=== PATIENT | female | born 1945 | race African-American/Black ===

== ENCOUNTER 2016-09-02 11:00 | Emergency (ER) | payer BC, MEDICARE ==
--- NOTE | 2016-09-02 13:10 | Emergency Department Record ---
History of Present Illness - General Chief complaint: Pain Stated complaint: ACHES LEFT SIDE OF BODY Time Seen by Provider: 09/02/16 11:35 Source: Patient Mode of Arrival: Wheelchair - History of Present Illness Initial comments: neck and low back pain and which radiates into the left leg Onset/Timin -: Days(s) Location: Left, Arm, Elbow, Hand, Knee, Lower Leg, Shoulder, Thigh History of Same: No Radiation: Other Severity scale (1-10): 10 Quality: Burning, Sharp, Stabbing Consistency: Constant Improves with: Nothing Worsens with: Nothing Associated Symptoms: Denies other symptoms - Related Data Home Medications Medication Instructions Recorded Confirmed Last Taken Citalopram Hydrobromide 20 mg PO DAILY 01/02/14 09/02/16 09/02/16 [Citalopram HBr] Lisinopril [Lisinopril] 40 mg PO DAILY 01/02/14 09/02/16 09/02/16 Lorazepam [Lorazepam] 1 mg PO QHS 01/02/14 09/02/16 09/02/16 Metoprolol Tartrate [Metoprolol 50 mg PO DAILY 01/02/14 09/02/16 09/02/16 Tartrate] Polyethylene Glycol 3350 17 gm PO DAILY 01/02/14 09/02/16 09/02/16 [Polyethylene Glycol 3350] Esomeprazole Magnesium [Nexium] 20 mg PO DAILY 11/07/14 09/02/16 09/02/16 Hydrocodone/Acetaminophen 1 tab PO ASDIR 11/22/15 09/02/16 09/02/16 [Hydrocodon-Acetaminophen 5-325] Previous Rx's Medication Instructions Recorded Dicyclomine HCl [Bentyl] 10 mg PO Q8H #30 cap 04/29/15 Naproxen [Naprosyn] 500 mg PO Q12H #20 tab. 09/02/16 Allergies Allergy/AdvReac Type Severity Reaction Status Date / Time codeine [CODEINE] Allergy Unknown HEADACHE Verified 06/17/16 20:28 Penicillins [PENICILLINS] Allergy Unknown HIVES Verified 06/17/16 20:28 Travel Screening - Travel/Exposure Within Last 30 Days Have you traveled within the last 30 days?: No - Travel/Exposure Within Last Year Have you traveled outside the [place] in the last year?: No - Additonal Travel Details Have you been exposed to anyone with a communicable illness?: No - Travel Symptoms Symptom Screening: None Review of Systems Reviewed: No additional complaints except as noted below Constitutional: Reports: As per HPI. Denies: Chills, Fever, Malaise, Night sweats, Weakness, Weight change Eyes: Reports: As per HPI. Denies: Eye discharge, Eye pain, Photophobia, Vision change ENT: Reports: As per HPI. Denies: Congestion, Dental pain, Ear pain, Epistaxis , Hearing loss, Throat pain Respiratory: Reports: As per HPI. Denies: Cough, Dyspnea, Hemoptysis, Stridor, Wheezes Cardiovascular: Reports: As per HPI. Denies: Arrhythmia, Chest pain, Dyspnea on exertion, Edema, Murmurs, Orthopnea, Palpitations, Paroxysmal nocturnal dyspnea, Rheumatic Fever, Syncope Endocrine: Reports: As per HPI. Denies: Fatigue, Heat or cold intolerance, Polydipsia, Polyuria Gastrointestinal: Reports: As per HPI. Denies: Abdominal pain, Constipation, Diarrhea, Hematemesis, Hematochezia, Melena, Nausea, Vomiting Genitourinary: Reports: As per HPI. Denies: Abnormal menses, Discharge, Dyspareunia, Dysuria, Frequency, Hematuria, Incontinence, Retention, Urgency Musculoskeletal: Reports: As per HPI, Back pain. Denies: Arthralgia, Gout, Joint swelling, Myalgia, Neck pain Skin: Reports: As per HPI. Denies: Bruising, Change in color, Change in hair/ nails, Lesions, Pruritus, Rash Neurological: Reports: As per HPI. Denies: Abnormal gait, Confusion, Headache, Numbness, Paresthesias, Seizure, Tingling, Tremors, Vertigo, Weakness Psychiatric: Reports: As per HPI. Denies: Anxiety, Auditory hallucinations, Depression, Homicidal thoughts, Suicidal thoughts, Visual hallucinations Hematological/Lymphatic: Reports: As per HPI. Denies: Anemia, Blood Clots, Easy bleeding, Easy bruising, Swollen glands Past Medical History - SOCIAL HISTORY Smoking Status: Former smoker Alcohol Use: None Drug Use: None - RESPIRATORY Hx Respiratory Disorders: Yes Hx Pneumonia: Yes (2011 or 2012) - CARDIOVASCULAR Hx Cardio Disorders: Yes Hx CHF: Yes Hx Hypertension: Yes - NEURO Hx Neuro Disorders: No - GI Hx GI Disorders: Yes Hx Abdominal Pain: Yes (lower mid radiates RLQ) Hx Reflux: Yes Hx Irritable Bowel: Yes Hx Pancreatitis: Yes (multiple time 2015) - Hx Genitourinary Disorders: No Hx Kidney Stones: No - ENDOCRINE Hx Endocrine Disorders: No Hx Diabetes: No Hx Thyroid Disease: No - MUSCULOSKELETAL Hx Musculoskeletal Disorders: Yes Hx Arthritis: Yes Hx Osteoporosis: Yes - PSYCH Hx Psych Problems: Yes Hx Anxiety: Yes Hx Depression: Yes - HEMATOLOGY/ONCOLOGY Hx Hematology/Oncology Disorders: Yes Hx Anemia: Yes (currently) Hx Blood Transfusions: Yes (when in the hospital w/pancreatitis) Family Medical History Any Significant Family History?: Yes Hx Diabetes: Mother, Brother/Sister Physical Exam - General General Appearance: Alert, Oriented x3, Cooperative, No acute distress - Head Head exam: Normal inspection - Eye Eye exam: Normal appearance, PERRL Pupils: Normal accommodation - ENT ENT exam: Normal exam, Mucous membranes moist, Normal external ear exam, Normal orophraynx, TM's normal bilaterally Ear exam: Normal external inspection. negative: External canal tenderness Nasal Exam: Normal inspection. negative: Discharge, Sinus tenderness Mouth exam: Normal external inspection, Tongue normal Teeth exam: Normal inspection. negative: Dental caries Throat exam: Normal inspection. negative: Tonsillar erythema, Tonsillar exudate - Neck Neck exam: Normal inspection, Full ROM. negative: Tenderness - Respiratory Respiratory exam: Normal lung sounds bilaterally. negative: Respiratory distress - Cardiovascular Cardiovascular Exam: Regular rate, Normal rhythm, Normal heart sounds - GI/Abdominal GI/Abdominal exam: Soft, Normal bowel sounds. negative: Tenderness - Rectal Rectal exam: Deferred - exam: Deferred - Extremities Extremities exam: Normal inspection, Full ROM, Normal capillary refill, Tenderness (low back pain and left leg radiopathy) - Back Back exam: Reports: Normal inspection, Full ROM. Denies: Muscle spasm, Rash noted, Tenderness - Neurological Neurological exam: Alert, Normal gait, Oriented X3, Reflexes normal - Psychiatric Psychiatric exam: Normal affect, Normal mood - Skin Skin exam: Dry, Intact, Normal color, Warm Course Vital Signs 09/02/16 09/02/16 11:42 11:45 Temperature 99.2 F 99.2 F Pulse Rate 85 Pulse Rate [ 101 H Pulse Ox Probe] Respiratory 12 12 Rate Blood Pressure 122/79 Blood Pressure 122/79 [Left Arm] Pulse Ox 97 97 Disposition Clinical Impression: Acute Strain of Neck Muscle Qualifiers: Encounter type: initial encounter Qualified Code(s): S16.1XXA - Strain of muscle, fascia and tendon at neck level, initial encounter Lumbar spine strain Qualifiers: Encounter type: sequela Qualified Code(s): S39.012S - Strain of muscle, fascia and tendon of lower back, sequela Disposition: Home, Self-Care Instructions: Musculoskeletal Pain (ED) Additional Instructions: Follow up with family doctor in 3-5 days. Prescriptions: Naproxen [Naprosyn] 500 mg PO Q12H #20 tab.dr Forms: Patient Portal Access Time of Disposition: 13:52
== END 2016-09-02 14:05 | disposition home or self-care (01) ==
LOC: ER 11:00
DX: S16.1XXA Strain of muscle, fascia and tendon at neck level, initial encounter (principal); S39.012A Strain of muscle, fascia and tendon of lower back, initial encounter; X58.XXXA Exposure to other specified factors, initial encounter
CPT/HCPCS: 99282

== ENCOUNTER 2016-10-12 13:19 | Emergency (ER) | payer MEDICARE ==
[2016-10-12] MEDS ORDERED: ONDANSETRON 4 MG ODT TABLET SL ONE (13:35)
[2016-10-12] MEDS ORDERED: ACETAMINOPHEN 500 MG TABLET PO ONE (13:37)
--- NOTE | 2016-10-12 13:39 | Emergency Department Record ---
History of Present Illness - General Chief complaint: Vomiting Stated complaint: VOMITING/DIARRHEA Time Seen by Provider: 10/12/16 13:31 Source: Patient Mode of Arrival: Ambulatory Limitations: No limitations - History of Present Illness Initial comments: 71 yo female presents with congestion, cough, sore throat, nausea, vomiting and diarrhea. Her initial symptoms started on Saturday with the cough and congestion with sore throat. The vomiting and diarrhea started in the last 24 hours. No fevers. No blood in the stools. The cough is non productive. MD complaint: Diarrhea, Nausea, Vomiting, Other (cough, runny nose, sore throat, sinus pressure) Onset/Timin -: Days(s) Description of Vomiting: Food contents, Watery Radiation: None Severity: Mild Quality: Constant Consistency: Constant Improves with: None Worsens with: None Associated Symptoms: Denies other symptoms - Related Data Home Medications Medication Instructions Recorded Confirmed Last Taken Citalopram Hydrobromide 20 mg PO DAILY 01/02/14 10/12/16 10/12/16 [Citalopram HBr] Lisinopril [Lisinopril] 40 mg PO DAILY 01/02/14 10/12/16 10/12/16 Lorazepam [Lorazepam] 1 mg PO QHS 01/02/14 10/12/16 10/12/16 Metoprolol Tartrate [Metoprolol 50 mg PO DAILY 01/02/14 10/12/16 10/12/16 Tartrate] Polyethylene Glycol 3350 17 gm PO DAILY 01/02/14 10/12/16 10/12/16 [Polyethylene Glycol 3350] Esomeprazole Magnesium [Nexium] 20 mg PO DAILY 11/07/14 10/12/16 10/12/16 Hydrocodone/Acetaminophen 1 tab PO ASDIR 11/22/15 10/12/16 10/12/16 [Hydrocodon-Acetaminophen 5-325] Previous Rx's Medication Instructions Recorded Dicyclomine HCl [Bentyl] 10 mg PO Q8H #30 cap 04/29/15 Ondansetron [Zofran Odt] 4 mg PO Q8H #15 tab.rapdis 10/12/16 Allergies Allergy/AdvReac Type Severity Reaction Status Date / Time codeine [CODEINE] Allergy Unknown HEADACHE Verified 10/12/16 13:26 Penicillins [PENICILLINS] Allergy Unknown HIVES Verified 10/12/16 13:26 Travel Screening - Travel/Exposure Within Last 30 Days Have you traveled within the last 30 days?: No - Travel/Exposure Within Last Year Have you traveled outside the [place] in the last year?: No - Additonal Travel Details Have you been exposed to anyone with a communicable illness?: No - Travel Symptoms Symptom Screening: None Review of Systems Constitutional: Reports: Malaise, Weakness. Denies: Chills, Fever Eyes: Denies: Eye discharge ENT: Reports: Congestion, Throat pain. Denies: Ear pain Respiratory: Reports: Cough. Denies: Dyspnea, Hemoptysis, Stridor, Wheezes Cardiovascular: Denies: Chest pain, Palpitations, Syncope Endocrine: Reports: Fatigue Gastrointestinal: Reports: Diarrhea, Nausea, Vomiting. Denies: Abdominal pain, Hematochezia, Melena Genitourinary: Denies: Dysuria, Urgency Musculoskeletal: Denies: Arthralgia, Back pain, Myalgia Skin: Denies: Bruising, Change in color, Rash Neurological: Denies: Confusion, Headache Psychiatric: Denies: Anxiety Hematological/Lymphatic: Denies: Blood Clots, Easy bleeding, Easy bruising, Swollen glands Past Medical History - SOCIAL HISTORY Smoking Status: Former smoker Alcohol Use: None Drug Use: None - RESPIRATORY Hx Respiratory Disorders: Yes Hx Pneumonia: Yes (2011 or 2012) - CARDIOVASCULAR Hx Cardio Disorders: Yes Hx CHF: Yes Hx Hypertension: Yes - NEURO Hx Neuro Disorders: No - GI Hx GI Disorders: Yes Hx Abdominal Pain: Yes (lower mid radiates RLQ) Hx Reflux: Yes Hx Irritable Bowel: Yes Hx Pancreatitis: Yes (multiple time 2014) - Hx Genitourinary Disorders: No Hx Kidney Stones: No - ENDOCRINE Hx Endocrine Disorders: No Hx Diabetes: No Hx Thyroid Disease: No - MUSCULOSKELETAL Hx Musculoskeletal Disorders: Yes Hx Arthritis: Yes Hx Osteoporosis: Yes - PSYCH Hx Psych Problems: Yes Hx Anxiety: Yes Hx Depression: Yes - HEMATOLOGY/ONCOLOGY Hx Hematology/Oncology Disorders: Yes Hx Anemia: Yes (currently) Hx Blood Transfusions: Yes (when in the hospital w/pancreatitis) Family Medical History Any Significant Family History?: Yes Hx Diabetes: Mother, Brother/Sister Physical Exam - General General Appearance: Alert, Oriented x3, Cooperative, No acute distress Limitations: No limitations - Head Head exam: Normal inspection - Eye Eye exam: Normal appearance, PERRL. negative: Conjunctival injection, Periorbital swelling - ENT ENT exam: Mucous membranes moist. negative: Normal exam, Normal orophraynx Ear exam: Normal external inspection. negative: External canal tenderness Nasal Exam: Discharge (clear), Sinus tenderness. negative: Normal inspection, Dried blood Mouth exam: Normal external inspection, Tongue normal Teeth exam: Normal inspection. negative: Dental caries Throat exam: Tonsillar erythema. negative: Tonsillomegaly, Tonsillar exudate, R peritonsillar mass, L peritonsillar mass - Neck Neck exam: Normal inspection, Full ROM. negative: Lymphadenopathy, Tenderness - Respiratory Respiratory exam: Normal lung sounds bilaterally. negative: Respiratory distress, Rhonchi, Stridor, Wheezes - Cardiovascular Cardiovascular Exam: Regular rate, Normal rhythm, Normal heart sounds Peripheral Pulses: 2+: Radial (R), Radial (L) - GI/Abdominal GI/Abdominal exam: Soft. negative: Diminished bowel sounds, Distended, Guarding , Rebound, Rigid, Tenderness - exam: Deferred - Extremities Extremities exam: Normal inspection - Back Back exam: Reports: Normal inspection, Full ROM. Denies: CVA tenderness (R), CVA tenderness (L), Muscle spasm, Rash noted, Tenderness - Neurological Neurological exam: Alert, Normal gait, Oriented X3 - Psychiatric Psychiatric exam: Normal affect, Normal mood. negative: Agitated, Anxious - Skin Skin exam: Dry, Intact, Normal color, Warm. negative: Cyanosis, Diaphoretic, Erythema Course Vital Signs 10/12/16 13:27 Temperature 99.3 F Pulse Rate 90 Respiratory 18 Rate Blood Pressure 137/89 Pulse Ox 99 - Reevaluation(s) Reevaluation #1: The patient was seen and examined She is well appearing, no acute distress. Her vitals are in the normal range Her examination is reassuring with a very soft abdomen that is non tender to palpation She will be provided Zofran and a PO challenge FLU swab sent 10/12/16 13:38 10/12/16 14:02 Reevaluation #2: The INFLUENZA A and B were negative 10/12/16 14:22 The patient was informed of the flu swabs No nausea or vomiting after the Zofran Waiting for a UA 10/12/16 14:24 Reevaluation #3: There are no acute changes on the UA for infection Spec [place] is 1.025 No vomiting or diarrhea in the ED Will DC with Zofran She has tolerated PO well. 10/12/16 15:37 Disposition Disposition: Discharge Clinical Impression: Nausea vomiting and diarrhea URI (upper respiratory infection) Qualifiers: URI type: unspecified URI Qualified Code(s): J06.9 - Acute upper respiratory infection, unspecified Disposition: Home, Self-Care Condition: (1) Good Instructions: Acute Nausea and Vomiting (ED), Viral Syndrome (ED) Additional Instructions: Rest and stay well hydrated Return if worse or if you have any uncontrolled nausea, vomiting or diarrhea. Call your doctor first of the week for a recheck You may take Zofran as directed for nausea. Prescriptions: Ondansetron [Zofran Odt] 4 mg PO Q8H #15 tab.rapdis Forms: Patient Portal Access Time of Disposition: 15:38
[2016-10-12 14:03] LABS: INFLUENZA A NEGATIVE (NEGATIVE); INFLUENZA B NEGATIVE (NEGATIVE)
[2016-10-12 15:14] LABS: URINE APPEARANCE CLEAR; URINE BILIRUBIN NEGATIVE (NEGATIVE); URINE BLOOD NEGATIVE (NEGATIVE); URINE COLOR YELLOW; URINE GLUCOSE (UA) NEGATIVE (NEGATIVE); URINE KETONE NEGATIVE (NEGATIVE); URINE LEUKOCYTE ESTERASE NEGATIVE (NEGATIVE); URINE NITRITE NEGATIVE (NEGATIVE); URINE PROTEIN TRACE (NEGATIVE); URINE UROBILINOGEN 0.2 E.U./dL (0.20 - 1.00)
[2016-10-12 15:24] LABS: URINE RBC 0 - 2 (NONE SEEN); URINE WBC 0 - 2 (0-2/hpf)
[2016-10-12 15:25] LABS: URINE BACTERIA FEW
== END 2016-10-12 16:16 | disposition home or self-care (01) ==
LOC: ER 13:19
DX: R11.2 Nausea with vomiting, unspecified (principal); R19.7 Diarrhea, unspecified; J06.9 Acute upper respiratory infection, unspecified; R10.31 Right lower quadrant pain; I10 Essential (primary) hypertension; I50.9 Heart failure, unspecified; Z87.891 Personal history of nicotine dependence
CPT/HCPCS: 81001; 87400; 99283

== ENCOUNTER 2016-10-24 14:47 | Emergency (ER) | payer MEDICARE ==
--- NOTE | 2016-10-24 16:31 | Emergency Department Record ---
History of Present Illness - General Chief Complaint: Neck Injury/Pain Stated Complaint: NECK,SHOULDER PAIN / BUNCH Time Seen by Provider: 10/24/16 16:23 Source: Patient, RN notes reviewed Mode of Arrival: Wheelchair - History of Present Illness Initial Comments: chronic neck pain and she is out of her pain medications and she was seen her [address] Pickett and she had a cardiac workup. No dyspnea . 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 MD Complaint: Neck pain Onset/Timin -: Days(s) Place: Home Radiation: Upper back, Other Severity: Similar to prior neck pain Severity scale (1-10): 10 Quality: Aching Consistency: Constant Improves With: None Worsens With: None Context: Other Associated Symptoms: None Treatments Prior to Arrival: None - Related Data Home Medications Medication Instructions Recorded Confirmed Last Taken Citalopram Hydrobromide 20 mg PO DAILY 01/02/14 10/24/16 10/19/16 [Citalopram HBr] Lisinopril [Lisinopril] 40 mg PO DAILY 01/02/14 10/24/16 10/19/16 Lorazepam [Lorazepam] 1 mg PO QHS 01/02/14 10/24/16 10/19/16 Metoprolol Tartrate [Metoprolol 50 mg PO DAILY 01/02/14 10/24/16 10/19/16 Tartrate] Polyethylene Glycol 3350 17 gm PO DAILY 01/02/14 10/24/16 10/19/16 [Polyethylene Glycol 3350] Esomeprazole Magnesium [Nexium] 20 mg PO DAILY 11/07/14 10/24/16 10/19/16 Hydrocodone/Acetaminophen 1 tab PO ASDIR 11/22/15 10/24/16 10/19/16 [Hydrocodon-Acetaminophen 5-325] Previous Rx's Medication Instructions Recorded Dicyclomine HCl [Bentyl] 10 mg PO Q8H #30 cap 04/29/15 Ondansetron [Zofran Odt] 4 mg PO Q8H #15 tab.rapdis 10/12/16 Cyclobenzaprine HCl [Flexeril] 10 mg PO TID #30 tablet 10/24/16 Hydrocodone/Acetaminophen [[place] 1 tab PO Q6H PRN #14 tab 10/24/16 5mg/325mg] Allergies Allergy/AdvReac Type Severity Reaction Status Date / Time codeine [CODEINE] Allergy Unknown HEADACHE Verified 10/24/16 15:43 Penicillins [PENICILLINS] Allergy Unknown HIVES Verified 10/24/16 15:43 Travel Screening - Travel/Exposure Within Last 30 Days Have you traveled within the last 30 days?: No Review of Systems Reviewed: No additional complaints except as noted below Constitutional: Reports: As per HPI. Denies: Chills, Fever, Malaise, Night sweats, Weakness, Weight change Eyes: Reports: As per HPI. Denies: Eye discharge, Eye pain, Photophobia, Vision change ENT: Reports: As per HPI. Denies: Congestion, Dental pain, Ear pain, Epistaxis , Hearing loss, Throat pain Respiratory: Reports: As per HPI. Denies: Cough, Dyspnea, Hemoptysis, Stridor, Wheezes Cardiovascular: Reports: As per HPI. Denies: Arrhythmia, Chest pain, Dyspnea on exertion, Edema, Murmurs, Orthopnea, Palpitations, Paroxysmal nocturnal dyspnea, Rheumatic Fever, Syncope Endocrine: Reports: As per HPI. Denies: Fatigue, Heat or cold intolerance, Polydipsia, Polyuria Gastrointestinal: Reports: As per HPI. Denies: Abdominal pain, Constipation, Diarrhea, Hematemesis, Hematochezia, Melena, Nausea, Vomiting Genitourinary: Reports: As per HPI. Denies: Abnormal menses, Discharge, Dyspareunia, Dysuria, Frequency, Hematuria, Incontinence, Retention, Urgency Musculoskeletal: Reports: As per HPI, Back pain, Neck pain, Other. Denies: Arthralgia, Gout, Joint swelling, Myalgia Skin: Reports: As per HPI. Denies: Bruising, Change in color, Change in hair/ nails, Lesions, Pruritus, Rash Neurological: Reports: As per HPI. Denies: Abnormal gait, Confusion, Headache, Numbness, Paresthesias, Seizure, Tingling, Tremors, Vertigo, Weakness Psychiatric: Reports: As per HPI. Denies: Anxiety, Auditory hallucinations, Depression, Homicidal thoughts, Suicidal thoughts, Visual hallucinations Hematological/Lymphatic: Reports: As per HPI. Denies: Anemia, Blood Clots, Easy bleeding, Easy bruising, Swollen glands Past Medical History - SOCIAL HISTORY Smoking Status: Former smoker Alcohol Use: None Drug Use: None - RESPIRATORY Hx Respiratory Disorders: Yes Hx Pneumonia: Yes (2011 or 2012) - CARDIOVASCULAR Hx Cardio Disorders: Yes Hx CHF: Yes Hx Hypertension: Yes - NEURO Hx Neuro Disorders: No - GI Hx GI Disorders: Yes Hx Abdominal Pain: Yes (lower mid radiates RLQ) Hx Reflux: Yes Hx Irritable Bowel: Yes Hx Pancreatitis: Yes (multiple time 2014) - Hx Genitourinary Disorders: No Hx Kidney Stones: No - ENDOCRINE Hx Endocrine Disorders: No Hx Diabetes: No Hx Thyroid Disease: No - MUSCULOSKELETAL Hx Musculoskeletal Disorders: Yes Hx Arthritis: Yes Hx Osteoporosis: Yes - PSYCH Hx Psych Problems: Yes Hx Anxiety: Yes Hx Depression: Yes - HEMATOLOGY/ONCOLOGY Hx Hematology/Oncology Disorders: Yes Hx Anemia: Yes (currently) Hx Blood Transfusions: Yes (when in the hospital w/pancreatitis) Family Medical History Any Significant Family History?: Yes Hx Diabetes: Mother, Brother/Sister Physical Exam - General General Appearance: Alert, Oriented x3, Cooperative, No acute distress - Head Head exam: Normal inspection - Eye Eye exam: Normal appearance, PERRL Pupils: Normal accommodation - ENT ENT exam: Normal exam, Mucous membranes moist, Normal external ear exam, Normal orophraynx, TM's normal bilaterally Ear exam: Normal external inspection. negative: External canal tenderness Nasal Exam: Normal inspection. negative: Discharge, Sinus tenderness Mouth exam: Normal external inspection, Tongue normal Teeth exam: Normal inspection. negative: Dental caries Throat exam: Normal inspection. negative: Tonsillar erythema, Tonsillar exudate - Neck Neck exam: Normal inspection, Full ROM. negative: Tenderness - Respiratory Respiratory exam: Normal lung sounds bilaterally. negative: Respiratory distress - Cardiovascular Cardiovascular Exam: Regular rate, Normal rhythm, Normal heart sounds - GI/Abdominal GI/Abdominal exam: Soft, Normal bowel sounds. negative: Tenderness - Rectal Rectal exam: Deferred - exam: Deferred - Extremities Extremities exam: Normal inspection, Full ROM, Normal capillary refill. negative: Tenderness - Back Back exam: Reports: Normal inspection, Full ROM. Denies: Muscle spasm, Rash noted, Tenderness - Neurological Neurological exam: Alert, Normal gait, Oriented X3, Reflexes normal - Psychiatric Psychiatric exam: Normal affect, Normal mood - Skin Skin exam: Dry, Intact, Normal color, Warm Course Vital Signs 10/24/16 15:38 Temperature 98.2 F Pulse Rate 116 H Respiratory 18 Rate Blood Pressure 109/76 Pulse Ox 98 Disposition Clinical Impression: Tension headache Strain of Neck Muscle Qualifiers: Encounter type: initial encounter Qualified Code(s): S16.1XXA - Strain of muscle, fascia and tendon at neck level, initial encounter Thoracic myofascial strain Qualifiers: Encounter type: initial encounter Qualified Code(s): S29.019A - Strain of muscle and tendon of unspecified wall of thorax, initial encounter Disposition: Home, Self-Care Condition: (1) Good Instructions: Cervical Sprain (ED) Additional Instructions: heat to back and neck follow up with primary DrCarrie in 2 days Prescriptions: Cyclobenzaprine HCl [Flexeril] 10 mg PO TID #30 tablet Hydrocodone/Acetaminophen [[place] 5mg/325mg] 1 tab PO Q6H PRN #14 tab PRN Reason: Pain - General Forms: Patient Portal Access Time of Disposition: 16:35
== END 2016-10-24 16:50 | disposition home or self-care (01) ==
LOC: ER 14:47
DX: S16.1XXA Strain of muscle, fascia and tendon at neck level, initial encounter (principal); S29.019A Strain of muscle and tendon of unspecified wall of thorax, initial encounter; G44.209 Tension-type headache, unspecified, not intractable; X58.XXXA Exposure to other specified factors, initial encounter
CPT/HCPCS: 99282

== ENCOUNTER 2016-10-26 13:25 | Emergency (ER) | payer MEDICARE ==
--- NOTE | 2016-10-26 14:18 | Emergency Department Record ---
History of Present Illness - General Stated Complaint: HEAD PAIN,LIGHTHEADED Time Seen by Provider: 10/26/16 14:12 Source: Patient, Family Mode of Arrival: Wheelchair Limitations: No limitations - History of Present Illness Initial comments: 71 yo female presents with nausea, vomiting, some diarrhea, headaches, neck pain , chest pain, abdominal pain. She has not felt well for two days since being seen in the ER for neck and back pain. She feels weak, nauseated, no appetite, and states she has not had anything to eat for 2 days. She was seen on 10/20 and 10/24 in the ED. She does suffer from chronic neck and back pain. The chest pain is mid chest and comes and goes. No history of CAD. She states her last normal meal was on Saturday. She has not seen her PCP since August. -: Days(s) Location: Other Radiation: Other Quality: Aching Consistency: Constant Improves with: None Worsens with: Eating, Movement Associated Symptoms: Chest pain, Cough, Headaches, Loss of appetite, Malaise, Nausea/vomiting, Shortness of breath, Weakness - [place] Coma Scale Eye Response: (4) Open spontaneously Motor Response: (6) Obeys commands Verbal Response: (5) Oriented [place] Total: 15 - Related Data Home Medications Medication Instructions Recorded Confirmed Last Taken Citalopram Hydrobromide 20 mg PO DAILY 01/02/14 10/24/16 10/19/16 [Citalopram HBr] Lisinopril [Lisinopril] 40 mg PO DAILY 01/02/14 10/24/16 10/19/16 Lorazepam [Lorazepam] 1 mg PO QHS 01/02/14 10/24/16 10/19/16 Metoprolol Tartrate [Metoprolol 50 mg PO DAILY 01/02/14 10/24/16 10/19/16 Tartrate] Polyethylene Glycol 3350 17 gm PO DAILY 01/02/14 10/24/16 10/19/16 [Polyethylene Glycol 3350] Esomeprazole Magnesium [Nexium] 20 mg PO DAILY 11/07/14 10/24/16 10/19/16 Hydrocodone/Acetaminophen 1 tab PO ASDIR 11/22/15 10/24/16 10/19/16 [Hydrocodon-Acetaminophen 5-325] Previous Rx's Medication Instructions Recorded Dicyclomine HCl [Bentyl] 10 mg PO Q8H #30 cap 04/29/15 Ondansetron [Zofran Odt] 4 mg PO Q8H #15 tab.rapdis 10/12/16 Cyclobenzaprine HCl [Flexeril] 10 mg PO TID #30 tablet 10/24/16 Hydrocodone/Acetaminophen [[place] 1 tab PO Q6H PRN #14 tab 10/24/16 5mg/325mg] Allergies Allergy/AdvReac Type Severity Reaction Status Date / Time codeine [CODEINE] Allergy Unknown HEADACHE Verified 10/24/16 15:43 Penicillins [PENICILLINS] Allergy Unknown HIVES Verified 10/24/16 15:43 Review of Systems Constitutional: Reports: Malaise, Weakness. Denies: Chills, Fever Eyes: Denies: Eye discharge, Eye pain, Photophobia, Vision change ENT: Denies: Congestion, Epistaxis, Throat pain Respiratory: Reports: Dyspnea. Denies: Cough, Hemoptysis, Stridor, Wheezes Cardiovascular: Reports: Chest pain. Denies: Palpitations, Syncope Endocrine: Denies: Fatigue, Polydipsia, Polyuria Gastrointestinal: Reports: Diarrhea (few loose stools), Nausea, Vomiting. Denies: Abdominal pain, Hematemesis, Hematochezia, Melena Genitourinary: Denies: Dysuria, Urgency Musculoskeletal: Reports: Back pain, Myalgia, Neck pain. Denies: Arthralgia, Joint swelling Skin: Denies: Bruising, Change in color Neurological: Reports: Headache. Denies: Numbness, Tingling, Tremors, Vertigo, Weakness Psychiatric: Denies: Anxiety Hematological/Lymphatic: Denies: Blood Clots, Easy bleeding, Easy bruising, Swollen glands Past Medical History - SOCIAL HISTORY Smoking Status: Former smoker Drug Use: None - RESPIRATORY Hx Respiratory Disorders: Yes Hx Pneumonia: Yes (2011 or 2012) - CARDIOVASCULAR Hx Cardio Disorders: Yes Hx CHF: Yes Hx Hypertension: Yes - NEURO Hx Neuro Disorders: No - GI Hx GI Disorders: Yes Hx Abdominal Pain: Yes (lower mid radiates RLQ) Hx Reflux: Yes Hx Irritable Bowel: Yes Hx Pancreatitis: Yes (multiple time 2014) - Hx Genitourinary Disorders: No Hx Kidney Stones: No - ENDOCRINE Hx Endocrine Disorders: No Hx Diabetes: No Hx Thyroid Disease: No - MUSCULOSKELETAL Hx Musculoskeletal Disorders: Yes Hx Arthritis: Yes Hx Osteoporosis: Yes - PSYCH Hx Psych Problems: Yes Hx Anxiety: Yes Hx Depression: Yes - HEMATOLOGY/ONCOLOGY Hx Hematology/Oncology Disorders: Yes Hx Anemia: Yes (currently) Hx Blood Transfusions: Yes (when in the hospital w/pancreatitis) Family Medical History Hx Diabetes: Mother, Brother/Sister Physical Exam - General General Appearance: Alert, Oriented x3, Cooperative, No acute distress Limitations: No limitations - Head Head exam: Atraumatic, Normal inspection - Eye Eye exam: Normal appearance, PERRL. negative: Conjunctival injection, Periorbital swelling - ENT ENT exam: Normal exam, Mucous membranes moist Ear exam: Normal external inspection Nasal Exam: Normal inspection Mouth exam: Normal external inspection Teeth exam: Normal inspection Throat exam: Normal inspection - Neck Neck exam: Normal inspection, Full ROM, Tenderness. negative: Lymphadenopathy, Meningismus - Respiratory Respiratory exam: Normal lung sounds bilaterally. negative: Accessory muscle use, Decreased breath sounds, Respiratory distress, Rhonchi, Stridor, Wheezes - Cardiovascular Cardiovascular Exam: Regular rate, Normal rhythm, Normal heart sounds Peripheral Pulses: 2+: Radial (R), Radial (L) - GI/Abdominal GI/Abdominal exam: Soft. negative: Distended, Tenderness - Rectal Rectal exam: Deferred - exam: Deferred - Extremities Extremities exam: Normal inspection, Full ROM, Normal capillary refill. negative: Pedal edema, Tenderness - Back Back exam: Reports: Normal inspection, CVA tenderness (R), CVA tenderness (L), Muscle spasm, Paraspinal tenderness, Tenderness, Vertebral tenderness. Denies: Full ROM, Rash noted - Neurological Neurological exam: Alert, Normal gait, Oriented X3, Reflexes normal - Psychiatric Psychiatric exam: Normal affect, Normal mood - Skin Skin exam: Dry, Intact, Normal color, Warm Course - Reevaluation(s) Reevaluation #1: EKG 14:26 NSR, rate 92, intervals normal, axis normal, ST NS anterior T wave changes in V@ and V3 new from prior. 10/26/16 15:05 10/26/16 16:35 Reevaluation #2: The labs were reviewed The patient has acute renal failure with CR of 2.3 and BUN of 31 With a GFR of 22 Prior CR 6 days ago was 0.8 with a GFR of >60 The CKG is 234 Troponin is negative 10/26/16 16:35 10/26/16 17:22 Reevaluation #3: HCT and Cervical spine CT scan are negative for acute processes Awaiting a UA 10/26/16 16:56 Reevaluation #4: UA 1.030 trace protein, no infection The patient preference is for [facility] was contacted for transfer Given her acute renal failure, chest pain and non specific changes she may need consultations not available at [facility] such as cardiology and nephrology 10/26/16 17:34 10/26/16 17:35 - Consultations Consultation #1: MAPS Reviewed. No pattern of abuse. Consultation #2: I GABE Savage She will admit for KATLIN, atypical CP Medical Decision Making - Lab Data Result diagrams: 10/26/16 15:55 10/26/16 15:55 Disposition Disposition: Transfer Clinical Impression: Nausea & vomiting, Chest pain, Headache, Dehydration, Acute kidney injury Cervical strain, acute Qualifiers: Encounter type: initial encounter Qualified Code(s): S16.1XXA - Strain of muscle, fascia and tendon at neck level, initial encounter Transfer To: [facility] Reason For Transfer: KATLIN, Atypical CP Accepting Physician: Hussein Time Discussed w/Accepting Physician: 17:49 Condition: (2) Stable Time of Disposition: 17:49
[2016-10-26] MEDS ORDERED: ONDANSETRON HCL IV 4 MG/2 ML VIAL IVP ONE (14:19)
[2016-10-26 16:01] LABS: BASO % 0.4 % (0-6); EOS % 1.5 % (0-6); GRAN % 73.7 % (47-80); HEMATOCRIT 31.9 % (35.0-47.0); HEMOGLOBIN 10.1 gm/dl (11.6-16.0); LYMPH % 17.7 % (16-45); MEAN CELL VOLUME 79.6 fl (81-97); MEAN CORPUSCULAR HEMOGLOBIN 25.1 pg (27-33); MEAN CORPUSCULAR HGB CONC 31.7 g/dl (32-36); MEAN PLATELET VOLUME 10.5 fl (7.4-10.4); MONO % 6.7 % (0-9); PLATELET COUNT 357 K/uL (130-400); RED BLOOD COUNT 4.01 M/uL (3.80-5.40); RED CELL DISTRIBUTION WIDTH 15.3 % (11.5-14.5); WHITE BLOOD COUNT W/O DIFF 7.4 K/uL (4.2-12.2)
[2016-10-26 16:10] LABS: INR 1.01; PARTIAL THROMBOPLASTIN TIME 24.6 SECONDS (24.5-39.1); PROTHROMBIN TIME (PATIENT) 11.4 SECONDS (9.5-12.1)
[2016-10-26 16:11] LABS: ALB/GLOB RATIO 1.2 (1.1-1.8); ALBUMIN 4.3 gm/dL (3.5-5.0); ALKALINE PHOSPHATASE 129 U/L (38-126); ALT/SGPT 24 U/L (9-52); ANION GAP 14.4 (7-16); AST/SGOT 25 U/L (14-36); BILIRUBIN,TOTAL 0.57 mg/dL (0.2-1.3); BLOOD UREA NITROGEN 31 mg/dL (7-17); CARBON DIOXIDE 25.6 mmol/L (22-30); CREATINE PHOSPHOKINASE 234 U/L (30-135); CREATININE 2.3 mg/dL (0.52-1.04); EST GLOMERULAR FILTRATION RATE 22 ml/min; GLUCOSE,RANDOM 94 mg/dL (70-110); TOTAL PROTEIN 7.8 gm/dL (6.3-8.2)
[2016-10-26 16:23] LABS: CKMB 2.3 ug/L (0-6); TROPONIN I < 0.012 ng/mL (0.00-0.034)
[2016-10-26] MEDS ORDERED: LORAZEPAM 2 MG/ML VIAL IV ONE (16:36)
[2016-10-26 17:26] LABS: URINE APPEARANCE SL CLOUDY; URINE BILIRUBIN NEGATIVE (NEGATIVE); URINE BLOOD NEGATIVE (NEGATIVE); URINE COLOR YELLOW; URINE GLUCOSE (UA) NEGATIVE (NEGATIVE); URINE KETONE NEGATIVE (NEGATIVE); URINE LEUKOCYTE ESTERASE NEGATIVE (NEGATIVE); URINE NITRITE NEGATIVE (NEGATIVE); URINE PROTEIN TRACE (NEGATIVE); URINE UROBILINOGEN 0.2 E.U./dL (0.20 - 1.00)
[2016-10-26] MEDS ORDERED: 0.9 % SODIUM CHLORIDE 1,000 ML BAG IV ONE (17:36)
[2016-10-26 19:06] LABS: ANION GAP 12.6 (7-16); CARBON DIOXIDE 24.4 mmol/L (22-30); CREATININE 1.9 mg/dL (0.52-1.04)
[2016-10-26] MEDS ORDERED: HYDROCODONE/APAP 5/325MG TABLET PO ONE (20:02)
--- NOTE | 2016-10-31 10:51 | CT SCAN REPORT ---
EXAM: HEAD CT HISTORY: HEADACHE, DIZZY. TECHNIQUE: Axial CT scan of the head was performed without IV contrast. Comparison: None. Hand dominance: Right. FINDINGS: No definite acute intracranial hemorrhage identified. No focal mass effect or midline shift apparent. Mild generalized atrophy is present. Some mild chronic appearing deep white matter changes seen, nonspecific, but likely representing some chronic small vessel deep white matter ischemic disease. No depressed calvarial fracture evident. The visualized mastoids and paranasal sinuses all appear essentially clear. IMPRESSION: 1. GENERALIZED ATROPHY WITH CHRONIC APPEARING DEEP WHITE MATTER CHANGES. 2. NO DEFINITE ACUTE INTRACRANIAL HEMORRHAGE OR FOCAL MASS EFFECT IDENTIFIED. JOB [facility]BER: [id number] [facility]
--- NOTE | 2016-10-31 12:12 | CT SCAN REPORT ---
DATE: 10/26/2016. EXAM: CT OF THE CERVICAL SPINE. HISTORY: Worsening neck pain. TECHNIQUE: Axial CT scan of the entire cervical spine was performed without intravenous contrast. COMPARISON: No prior cervical study with which to compare. ENCOUNTER: Not applicable. FINDINGS: No apical pneumothorax is evident. 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 No definite fracture of the cervical spine identified. No prevertebral soft tissue swelling is evident. Some loss of the normal cervical lordosis likely due to positioning or spasm. Prominent degenerative change at the odontoid-anterior arch of C1 articulation. Narrowing of the fifth and sixth cervical interspaces with hypertrophic spurring as well. Facet joint arthropathy at multiple levels as well. Generous -sized thyroid gland with the left lobe larger than the right. No obvious focal thyroid nodule/mass seen, but correlation with physical examination suggested. If clinically warranted follow up with non-emergent thyroid ultrasound may be useful to more fully evaluate the relatively large-appearing thyroid gland. Multilevel foraminal stenosis related to the degenerative change in the cervical spine. IMPRESSION: 1. NO DEFINITE FRACTURE OR PREVERTEBRAL SOFT TISSUE SWELLING SEEN IN THE CERVICAL SPINE. 2. MULTILEVEL DEGENERATIVE CHANGE IN THE CERVICAL SPINE WITH LOSS OF LORDOSIS LIKELY DUE TO POSITIONING OR SPASM. 3. PROMINENT-SIZED THYROID GLAND, PARTICULARLY LEFT LOBE DESCRIBED ABOVE. JOB NUMBER: [id number] [facility]
== END 2016-10-26 20:28 | disposition short-term general hospital (02) ==
LOC: ER 13:25
DX: N17.9 Acute kidney failure, unspecified (principal); S37.009A Unspecified injury of unspecified kidney, initial encounter; S16.1XXA Strain of muscle, fascia and tendon at neck level, initial encounter; R07.89 Other chest pain; R11.2 Nausea with vomiting, unspecified; R19.7 Diarrhea, unspecified; R51 Headache; E86.0 Dehydration; I10 Essential (primary) hypertension; I50.9 Heart failure, unspecified; Z87.891 Personal history of nicotine dependence; X58.XXXA Exposure to other specified factors, initial encounter
CPT/HCPCS: 99285 ×2; 96374; 96375; 96361; 82550; 83690; 85025; 85730; 85610; 82553; 84484; 80048; 80053; 81003; 72125; 70450; 93005; 93010; J2405; J2060; J7030

== ENCOUNTER 2017-02-16 09:32 | Emergency (ER) | payer MEDICARE ==
[2017-02-16] MEDS ORDERED: ACETAMINOPHEN 1,000 MG/100 ML BTL IVPB ONE (09:42)
[2017-02-16] MEDS ORDERED: DIAZEPAM 5 MG/1 ML TUBX IVP ONE (09:42)
--- NOTE | 2017-02-16 09:48 | Emergency Department Record ---
History of Present Illness - General Chief complaint: Pain Stated complaint: HEAD PAIN Source: Patient, Family Mode of Arrival: Ambulatory Limitations: No limitations - History of Present Illness Initial comments: 71yo female presents with neck pain. The pain has increased the last 2 days. The pain worsens with turning the head side to side. No weakness, numbness or tingling. No trauma. The patient has a long history of pain in the back and neck. No fevers or chills. No nausea, vomiting, or diarrhea. No lower extremity weakness. No upper extremity weakness. The neck pain causes a headache in the occipital area. No rash. PCP [facility]. No spine surgery. The neck pain causes the low back to spasm as well. No changes in bowel or bladder function. She has Redmon and Valium from her PCP. She did not take them today. She stated she wanted to be able to monitor the severity of todays pain. MD Complaint: Neck Pain -: Days(s) (2) Location: Other (neck) -: Yes Arthralgia Radiation: Proximal, Distal Quality: Aching Consistency: Constant Improves with: Immobilization, Rest Worsens with: Other (turning head) - Related Data Home Medications Medication Instructions Recorded Confirmed Last Taken Citalopram Hydrobromide 20 mg PO DAILY 01/02/14 02/16/17 02/15/17 [Citalopram HBr] Lisinopril [Lisinopril] 40 mg PO DAILY 01/02/14 02/16/17 02/15/17 Lorazepam [Lorazepam] 1 mg PO QHS 01/02/14 02/16/17 02/15/17 Metoprolol Tartrate [Metoprolol 50 mg PO DAILY 01/02/14 02/16/17 02/15/17 Tartrate] Polyethylene Glycol 3350 17 gm PO DAILY 01/02/14 02/16/17 02/15/17 [Polyethylene Glycol 3350] Esomeprazole Magnesium [Nexium] 20 mg PO DAILY 11/07/14 02/16/17 02/15/17 Hydrocodone/Acetaminophen 1 tab PO ASDIR 11/22/15 02/16/17 02/15/17 [Hydrocodon-Acetaminophen 5-325] Previous Rx's Medication Instructions Recorded Dicyclomine HCl [Bentyl] 10 mg PO Q8H #30 cap 04/29/15 Ondansetron [Zofran Odt] 4 mg PO Q8H #15 tab.rapdis 10/12/16 Cyclobenzaprine HCl [Flexeril] 10 mg PO TID #30 tablet 10/24/16 Hydrocodone/Acetaminophen [[place] 1 tab PO Q6H PRN #14 tab 10/24/16 5mg/325mg] Methylprednisolone [Medrol Dose 0 mg PO UD #1 tab.ds.pk 02/16/17 Pack] Allergies Allergy/AdvReac Type Severity Reaction Status Date / Time codeine [CODEINE] Allergy Unknown HEADACHE Verified 02/16/17 09:38 Penicillins [PENICILLINS] Allergy Unknown HIVES Verified 02/16/17 09:38 Review of Systems Constitutional: Denies: Chills, Fever, Malaise, Weakness Eyes: Denies: Eye discharge ENT: Denies: Congestion, Throat pain Respiratory: Denies: Cough, Dyspnea, Hemoptysis, Stridor Cardiovascular: Denies: Chest pain, Palpitations, Syncope Endocrine: Denies: Fatigue, Polydipsia, Polyuria Gastrointestinal: Denies: Abdominal pain, Diarrhea, Hematemesis, Hematochezia, Nausea, Vomiting Genitourinary: Denies: Dysuria, Incontinence, Retention, Urgency Musculoskeletal: Reports: Back pain, Myalgia Skin: Denies: Bruising, Change in color, Rash Neurological: Reports: Headache. Denies: Abnormal gait, Confusion, Numbness, Paresthesias, Tingling, Tremors, Vertigo, Weakness Psychiatric: Denies: Anxiety Hematological/Lymphatic: Denies: Blood Clots, Easy bleeding, Easy bruising, Swollen glands Past Medical History - SOCIAL HISTORY Smoking Status: Former smoker Drug Use: None - RESPIRATORY Hx Respiratory Disorders: Yes Hx Pneumonia: Yes (2011 or 2012) - CARDIOVASCULAR Hx Cardio Disorders: Yes Hx CHF: Yes Hx Hypertension: Yes - NEURO Hx Neuro Disorders: No - GI Hx GI Disorders: Yes Hx Abdominal Pain: Yes (lower mid radiates RLQ) Hx Reflux: Yes Hx Irritable Bowel: Yes Hx Pancreatitis: Yes (multiple time 2014) - Hx Genitourinary Disorders: No Hx Kidney Stones: No - ENDOCRINE Hx Endocrine Disorders: No Hx Diabetes: No Hx Thyroid Disease: No - MUSCULOSKELETAL Hx Musculoskeletal Disorders: Yes Hx Arthritis: Yes Hx Osteoporosis: Yes - PSYCH Hx Psych Problems: Yes Hx Anxiety: Yes Hx Depression: Yes - HEMATOLOGY/ONCOLOGY Hx Hematology/Oncology Disorders: Yes Hx Anemia: Yes (currently) Hx Blood Transfusions: Yes (when in the hospital w/pancreatitis) Family Medical History Hx Diabetes: Mother, Brother/Sister Physical Exam - General General Appearance: Alert, Oriented x3, Cooperative, No acute distress, Other ( No distress, appears at baseline. Patient known to me from prior evaluations.) Limitations: No limitations, Other (alert and conversational, clear speech) - Head Head exam: Atraumatic, Normocephalic, Normal inspection - Eye Eye exam: Normal appearance, PERRL, EOMI. negative: Conjunctival injection, Nystagmus, Periorbital swelling - ENT ENT exam: Normal exam, Mucous membranes moist Ear exam: Normal external inspection Nasal Exam: Normal inspection Mouth exam: Normal external inspection Teeth exam: Other (no teeth) Throat exam: Normal inspection. negative: Tonsillar erythema - Neck Neck exam: Normal inspection, Tenderness. negative: Full ROM (spasm), Lymphadenopathy, Meningismus, Thyromegaly (soft, no large mass, prior CT suggested enlarged thyroid) - Respiratory Respiratory exam: Normal lung sounds bilaterally. negative: Decreased breath sounds, Respiratory distress - Cardiovascular Cardiovascular Exam: Regular rate, Normal rhythm, Normal heart sounds Peripheral Pulses: 2+: Radial (R), Radial (L), Dorsalis Pedis (R), Dorsalis Pedis (L) - GI/Abdominal GI/Abdominal exam: Soft. negative: Guarding, Rebound, Rigid, Tenderness - Rectal Rectal exam: Deferred - exam: Deferred - Extremities Extremities exam: Normal inspection, Full ROM, Normal capillary refill. negative: Tenderness - Back Back exam: Reports: Normal inspection, Full ROM, Paraspinal tenderness (low lumbar), Tenderness (low lumber), Vertebral tenderness. 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 negative: Altered, Motor sensory deficit - Psychiatric Psychiatric exam: Normal affect, Normal mood - Skin Skin exam: Dry, Intact, Normal color, Warm. negative: Cyanosis, Diaphoretic, Erythema, Mottled Course - Reevaluation(s) Reevaluation #1: The patient is in [facility] records from October admission were reviewed. The patient was seen by neurology for similar neck pain and headaches. MRI was performed. The patient' s symptoms resolved over time. Multiple ED visits at [facility] reviewed. The patient has noted history of back and neck pain with prior studies demonstrating multilevel degenerative disease. Today she is well appearing at baseline, neurologic examination as tested was normal. Her discomfort on examination is reproducible with turning and improved with relaxation. It is consistent with muculo-skeletal in etiology. No other current signs or symptoms suggest other causes at this time. 02/16/17 10:20 Reevaluation #2: The patient has good range of motion after the valium and ofirmev The CT scan report was reviewed. No acute changes of her multilevel degenerative changes as seen on prior studies. The patient was encouraged to follow up this week with her PCP for her symptoms 02/16/17 10:51 Reevaluation #3: We discussed home care and reasons to return She is moving the neck spontaneously very well and appears comfortable and relaxed We discussed close follow up with the PCP 02/16/17 11:00 Disposition Disposition: Discharge Clinical Impression: Cervical strain, acute Qualifiers: Encounter type: initial encounter Qualified Code(s): S16.1XXA - Strain of muscle, fascia and tendon at neck level, initial encounter Condition: (1) Good Instructions: Cervical Strain (ED) Additional Instructions: Rest today Call your doctor Saturday for close follow up You may resume your pain medications at home If your pain continues you may need further tests or referrals with your family doctor Return immediately if you have any weakness, numbness, changes in bowel or bladder function Prescriptions: Methylprednisolone [Medrol Dose Pack] 0 mg PO UD #1 tab.ds.pk Forms: Patient Portal Access Time of Disposition: 10:57 Quality - Quality Measures Quality Measures: N/A - Blood Pressure Screening View Details: Yes Blood Pressure Classification: Hypertensive Reading Systolic Measurement: 139 Diastolic Measurement: 93 Screening for High Blood Pressure: < Pre-Hypertensive BP, F/U Documented > [ [id number]] Pre-Hypertensive Follow-up Interventions: Follow-up with rescreen every year.
[2017-02-16] MEDS ORDERED: METHYLPREDNISOLONE PF 125MG/VIAL IVP ONE (10:57)
--- NOTE | 2017-02-18 10:53 | CT SCAN REPORT ---
EXAM: CT OF THE CERVICAL SPINE HISTORY: NECK PAIN. TECHNIQUE: Axial CT images of the cervical spine with coronal and sagittal reconstructions were obtained. Comparison: 10/26/16 CT. FINDINGS: Evaluation of the spinal canal contents is limited due to CT technique, however, the vertebral body height is preserved. Minor anterolisthesis of C4 on C5, unchanged and felt to be on a degenerative basis. Degenerative changes throughout the cervical spine with disk space narrowing, osteophytic spurring, facet arthropathy, and uncovertebral joint hypertrophy. The surrounding soft tissues are grossly unremarkable. IMPRESSION: 1. NEGATIVE FOR ACUTE CERVICAL SPINE ABNORMALITY. DIFFUSE DEGENERATIVE CHANGE , SIMILAR TO THE PRIOR. 2. NOT STATED PREVIOUSLY, NODULAR APPEARANCE TO THE VISUALIZED THYROID. COULD CONSIDER FURTHER ASSESSMENT WITH NONEMERGENT ULTRASOUND. JOB NUMBER: [id number] [facility]
== END 2017-02-16 11:18 | disposition home or self-care (01) ==
LOC: ER 09:32
DX: S16.1XXA Strain of muscle, fascia and tendon at neck level, initial encounter (principal); X58.XXXA Exposure to other specified factors, initial encounter; I50.9 Heart failure, unspecified; I10 Essential (primary) hypertension; Z87.891 Personal history of nicotine dependence
CPT/HCPCS: 72125; 96365; 96375; 99284; J2930; J3360

== ENCOUNTER 2017-04-11 09:14 | Emergency (ER) | payer MEDICARE ==
--- NOTE | 2017-04-11 09:24 | Emergency Department Record ---
History of Present Illness - General Chief Complaint: Back Pain/Injury Stated Complaint: BACK PAIN Source: Patient, Family Mode of Arrival: Ambulatory Limitations: No limitations - History of Present Illness Initial Comments: 72 yo female presents with back pain. She has a long history of pain in the spine that comes and goes. Currently her pain is lower lumber and more to the right. She reports the pain has been increased for a couple weeks. She gets pain down the right leg. No abdominal pain. She was at her new doctor last week, [facility] yesterday and went to her PCP today. She states she was placed on Cymbalta. Her new PCP is Dr Bustamante. No weakness, urinary or bowel changes. No fevers. No history of back surgery. MD Complaint: Back pain - Related Data Previous Rx's Medication Instructions Recorded Dicyclomine HCl [Bentyl] 10 mg PO Q8H #30 cap 04/29/15 Ondansetron [Zofran Odt] 4 mg PO Q8H #15 tab.rapdis 10/12/16 Diazepam [Valium] 5 mg PO Q8H #12 tab 04/11/17 Methylprednisolone [Medrol Dose 4 mg PO DAILY #1 tab.ds.pk 04/11/17 Pack] Allergies Allergy/AdvReac Type Severity Reaction Status Date / Time codeine [CODEINE] Allergy Unknown HEADACHE Verified 04/11/17 09:15 Penicillins [PENICILLINS] Allergy Unknown HIVES Verified 04/11/17 09:15 Review of Systems Constitutional: Denies: Chills, Fever, Malaise, Weakness Eyes: Denies: Eye discharge ENT: Denies: Congestion, Throat pain Respiratory: Denies: Cough, Dyspnea, Hemoptysis, Stridor, Wheezes Cardiovascular: Denies: Chest pain, Palpitations, Syncope Endocrine: Denies: Fatigue, Polydipsia, Polyuria Gastrointestinal: Denies: Abdominal pain, Diarrhea, Hematemesis, Hematochezia, Nausea, Vomiting Genitourinary: Denies: Dysuria, Retention, Urgency Musculoskeletal: Reports: Back pain, Myalgia, Neck pain Skin: Denies: Bruising, Change in color, Rash Neurological: Denies: Confusion, Headache, Numbness, Weakness Psychiatric: Denies: Anxiety Hematological/Lymphatic: Denies: Blood Clots, Easy bleeding, Easy bruising, Swollen glands Past Medical History - SOCIAL HISTORY Smoking Status: Former smoker Drug Use: None - RESPIRATORY Hx Respiratory Disorders: Yes Hx Pneumonia: Yes (2011 or 2013) - CARDIOVASCULAR Hx Cardio Disorders: Yes Hx CHF: Yes Hx Hypertension: Yes - NEURO Hx Neuro Disorders: No - GI Hx GI Disorders: Yes Hx Abdominal Pain: Yes (lower mid radiates RLQ) Hx Reflux: Yes Hx Irritable Bowel: Yes Hx Pancreatitis: Yes (multiple time 2014) - Hx Genitourinary Disorders: No Hx Kidney Stones: No - ENDOCRINE Hx Endocrine Disorders: No Hx Diabetes: No Hx Thyroid Disease: No - MUSCULOSKELETAL Hx Musculoskeletal Disorders: Yes Hx Arthritis: Yes Hx Osteoporosis: Yes - PSYCH Hx Psych Problems: Yes Hx Anxiety: Yes Hx Depression: Yes - HEMATOLOGY/ONCOLOGY Hx Hematology/Oncology Disorders: Yes Hx Anemia: Yes (currently) Hx Blood Transfusions: Yes (when in the hospital w/pancreatitis) Family Medical History Hx Diabetes: Mother, Brother/Sister Physical Exam - General General Appearance: Alert, Oriented x3, Cooperative, No acute distress Limitations: No limitations - Head Head exam: Atraumatic, Normal inspection - Eye Eye exam: Normal appearance, PERRL. negative: Conjunctival injection, Periorbital swelling - ENT ENT exam: Normal exam, Mucous membranes moist Ear exam: Normal external inspection Nasal Exam: Normal inspection Mouth exam: Normal external inspection, Tongue normal Teeth exam: Normal inspection. negative: Dental caries Throat exam: Normal inspection. negative: Tonsillar erythema, Tonsillar exudate - Neck Neck exam: Normal inspection, Full ROM. negative: Tenderness - Respiratory Respiratory exam: Normal lung sounds bilaterally. negative: Respiratory distress, Rhonchi, Stridor, Wheezes - Cardiovascular Cardiovascular Exam: Regular rate, Normal rhythm, Normal heart sounds - GI/Abdominal GI/Abdominal exam: Soft. negative: Tenderness - Rectal Rectal exam: Deferred - exam: Deferred - Extremities Extremities exam: Normal inspection. negative: Full ROM, Joint swelling, Normal capillary refill, Pedal edema, Tenderness - Back Back exam: Reports: Normal inspection, Muscle spasm, Paraspinal tenderness, Other (No foot drop, negative straight leg raise). Denies: CVA tenderness (R), CVA tenderness (L), Vertebral tenderness - Neurological Neurological exam: Alert, Normal gait, Oriented X3. negative: Abnormal gait, Altered, Motor sensory deficit - Psychiatric Psychiatric exam: Normal affect, Normal mood. negative: Agitated, Anxious - Skin Skin exam: Dry, Intact, Normal color, Warm Course - Reevaluation(s) Reevaluation #1: Records from [facility] requested MAPS reviewed: Last Rx was Tramadol 50mg #60 on 03/22, Ativan 1mg #30 on . Last [place] #60 on 03/11/17 by PCP. [place] Rx in the past have come from PCP nearly exclusively. 04/11/17 09:24 Reevaluation #2: XR from [facility] reviewed from yesterday. Lumbarization of upper sacral, arthritis of L4-S1. No Fx. 04/11/17 09:43 Reevaluation #3: The patient is doing much better She will be DC home to follow up with her PCP No neuro findings on todays examination or by history. NO weakness. No numbness. 04/11/17 10:25 Disposition Disposition: Discharge Clinical Impression: Sciatica Qualifiers: Laterality: right Qualified Code(s): M54.31 - Sciatica, right side Disposition: Home, Self-Care Condition: (1) Good Instructions: Sciatica (ED) Additional Instructions: Call your doctor for close follow up Return or be seen if worse, weakness, numb, changes in bowel or bladder functioning Prescriptions: Diazepam [Valium] 5 mg PO Q8H #12 tab Methylprednisolone [Medrol Dose Pack] 4 mg PO DAILY #1 tab.ds.pk Forms: Patient Portal Access Time of Disposition: 10:26 Quality - Quality Measures Quality Measures: N/A - Blood Pressure Screening Does Patient Have Any of the Following: No Blood Pressure Classification: Hypertensive Reading Systolic Measurement: 150 Diastolic Measurement: 91 Screening for High Blood Pressure: < Pre-Hypertensive BP, F/U Documented > [ G8950] Pre-Hypertensive Follow-up Interventions: Referral to alternative/primary care provider.
[2017-04-11] MEDS ORDERED: METHYLPREDNISOLONE PF 125MG/VIAL IVP ONE (09:26)
[2017-04-11] MEDS ORDERED: ACETAMINOPHEN 1,000 MG/100 ML BTL IVPB ONE (09:26)
== END 2017-04-11 11:00 | disposition home or self-care (01) ==
LOC: ER 09:14
DX: M54.31 Sciatica, right side (principal); I10 Essential (primary) hypertension; I50.9 Heart failure, unspecified
CPT/HCPCS: 96374; 96375; 99284; J2930

== ENCOUNTER 2017-04-14 18:44 | Emergency (ER) | payer MEDICARE ==
[2017-04-14] MEDS ORDERED: METHYLPREDNISOLONE PF 125MG/VIAL IM ONE (20:02)
--- NOTE | 2017-04-14 20:47 | Emergency Department Record ---
History of Present Illness - General Chief Complaint: Back Pain/Injury Stated Complaint: BACK PAIN Time Seen by Provider: 04/14/17 19:48 Source: Patient Mode of Arrival: Ambulatory Limitations: No limitations - History of Present Illness Initial Comments: pt comes in c/o back pain. she was here a few days ago with the same and states the medicine helped her. she denies any new injury. she denies any problems w bowel or bladder. the pain radiates down her leg. pt was seen in [facility] 6 days ago. MD Complaint: Back pain Onset/Timin -: Days(s) Similar Symptoms Previously: Yes Place: Home Radiation: Right leg Severity: Severe Severity scale (1-10): 9 Quality: Aching Consistency: Constant Improves With: None Worsens With: None Context: Unknown Associated Symptoms: Difficulty walking Treatments Prior to Arrival: Other medications - Related Data Previous Rx's Medication Instructions Recorded Dicyclomine HCl [Bentyl] 10 mg PO Q8H #30 cap 04/29/15 Ondansetron [Zofran Odt] 4 mg PO Q8H #15 tab.rapdis 10/12/16 Diazepam [Valium] 5 mg PO Q8H #12 tab 04/11/17 Methylprednisolone [Medrol Dose 4 mg PO DAILY #1 tab.ds.pk 04/11/17 Pack] Allergies Allergy/AdvReac Type Severity Reaction Status Date / Time codeine [CODEINE] Allergy Unknown HEADACHE Verified 04/11/17 09:15 Penicillins [PENICILLINS] Allergy Unknown HIVES Verified 04/11/17 09:15 Travel Screening - Travel/Exposure Within Last 30 Days Have you traveled within the last 30 days?: No Review of Systems Reviewed: No additional complaints except as noted below Constitutional: Reports: As per HPI. Denies: Chills, Fever, Malaise, Night sweats, Weakness, Weight change Eyes: Reports: As per HPI. Denies: Eye discharge, Eye pain, Photophobia, Vision change ENT: Reports: As per HPI. Denies: Congestion, Dental pain, Ear pain, Epistaxis , Hearing loss, Throat pain Respiratory: Reports: As per HPI. Denies: Cough, Dyspnea, Hemoptysis, Stridor, Wheezes Cardiovascular: Reports: As per HPI. Denies: Arrhythmia, Chest pain, Dyspnea on exertion, Edema, Murmurs, Orthopnea, Palpitations, Paroxysmal nocturnal dyspnea, Rheumatic Fever, Syncope Endocrine: Reports: As per HPI. Denies: Fatigue, Heat or cold intolerance, Polydipsia, Polyuria Gastrointestinal: Reports: As per HPI. Denies: Abdominal pain, Constipation, Diarrhea, Hematemesis, Hematochezia, Melena, Nausea, Vomiting Genitourinary: Reports: As per HPI. Denies: Abnormal menses, Discharge, Dyspareunia, Dysuria, Frequency, Hematuria, Incontinence, Retention, Urgency Musculoskeletal: Reports: As per HPI. Denies: Arthralgia, Back pain, Gout, Joint swelling, Myalgia, Neck pain Skin: Reports: As per HPI. Denies: Bruising, Change in color, Change in hair/ nails, Lesions, Pruritus, Rash Neurological: Reports: As per HPI. Denies: Abnormal gait, Confusion, Headache, Numbness, Paresthesias, Seizure, Tingling, Tremors, Vertigo, Weakness Psychiatric: Reports: As per HPI. Denies: Anxiety, Auditory hallucinations, Depression, Homicidal thoughts, Suicidal thoughts, Visual hallucinations Hematological/Lymphatic: Reports: As per HPI. Denies: Anemia, Blood Clots, Easy bleeding, Easy bruising, Swollen glands Past Medical History - SOCIAL HISTORY Smoking Status: Former smoker Alcohol Use: None Drug Use: None - RESPIRATORY Hx Respiratory Disorders: Yes Hx Pneumonia: Yes (2011 or 2012) - CARDIOVASCULAR Hx Cardio Disorders: Yes Hx CHF: Yes Hx Hypertension: Yes - NEURO Hx Neuro Disorders: No - GI Hx GI Disorders: Yes Hx Abdominal Pain: Yes (lower mid radiates RLQ) Hx Reflux: Yes Hx Irritable Bowel: Yes Hx Pancreatitis: Yes (multiple time 2014) - Hx Genitourinary Disorders: No Hx Kidney Stones: No - ENDOCRINE Hx Endocrine Disorders: No Hx Diabetes: No Hx Thyroid Disease: No - MUSCULOSKELETAL Hx Musculoskeletal Disorders: Yes Hx Arthritis: Yes Hx Osteoporosis: Yes - PSYCH Hx Psych Problems: Yes Hx Anxiety: Yes Hx Depression: Yes - HEMATOLOGY/ONCOLOGY Hx Hematology/Oncology Disorders: Yes Hx Anemia: Yes (currently) Hx Blood Transfusions: Yes (when in the hospital w/pancreatitis) Family Medical History Any Significant Family History?: Yes Hx Diabetes: Mother, Brother/Sister Physical Exam - General General Appearance: Alert, Oriented x3, Cooperative, Mild distress - Head Head exam: Normal inspection - Eye Eye exam: Normal appearance, PERRL, EOMI Pupils: Normal accommodation - ENT ENT exam: Normal exam, Mucous membranes moist, Normal external ear exam, Normal orophraynx Ear exam: Normal external inspection. negative: External canal tenderness Nasal Exam: Normal inspection. negative: Discharge, Sinus tenderness Mouth exam: Normal external inspection, Tongue normal Teeth exam: Normal inspection. negative: Dental caries Throat exam: Normal inspection. negative: Tonsillar erythema, Tonsillar exudate - Neck Neck exam: Normal inspection, Full ROM. negative: Tenderness - Respiratory Respiratory exam: Normal lung sounds bilaterally. negative: Respiratory distress - Cardiovascular Cardiovascular Exam: Regular rate, Normal rhythm, Normal heart sounds - GI/Abdominal GI/Abdominal exam: Soft, Normal bowel sounds. negative: Tenderness - Rectal Rectal exam: Deferred - exam: Deferred - Extremities Extremities exam: Normal inspection, Full ROM, Normal capillary refill. negative: Tenderness - Back Back exam: Reports: Normal inspection, Full ROM. Denies: Muscle spasm, Rash noted, Tenderness - Neurological Neurological exam: Alert, CN II-XII intact, Normal gait, Oriented X3 - Psychiatric Psychiatric exam: Normal affect, Normal mood - Skin Skin exam: Dry, Intact, Normal color, Warm Course Vital Signs 04/14/17 19:47 Temperature 99.4 F Pulse Rate [ 102 H Pulse Ox Probe] Respiratory 18 Rate Blood Pressure 160/106 [Left Arm] Pulse Ox 99 - Reevaluation(s) Reevaluation #1: 04/14/17 20:54 it was explained to pt that she needs to follow up with her family doctor for her chronic back pain. she might need further evaluation i am not able to give her here such as an mri. she states she had one before in [place] Disposition Disposition: Discharge Clinical Impression: Sciatica Qualifiers: Laterality: right Qualified Code(s): M54.31 - Sciatica, right side Disposition: Home, Self-Care Condition: (1) Good Instructions: Sciatica (ED) Additional Instructions: follow up with family doctor without fail on saturday. return sooner if worse. take home meds as prescribed Forms: Patient Portal Access Quality - Quality Measures Quality Measures: N/A - Blood Pressure Screening Does Patient Have Any of the Following: Active Dx of HTN Blood Pressure Classification: Hypertensive Reading Systolic Measurement: 160 Diastolic Measurement: 106 Screening for High Blood Pressure: Patient Exclusion, Hx of HTN [G9744]
[2017-04-14] MEDS ORDERED: HYDROCODONE/APAP 5/325MG TABLET PO ONE (20:54)
== END 2017-04-14 21:08 | disposition home or self-care (01) ==
LOC: ER 18:44
DX: M54.31 Sciatica, right side (principal); R26.2 Difficulty in walking, not elsewhere classified
CPT/HCPCS: 96372; 99283; J2930

== ENCOUNTER 2017-05-04 10:45 | Inpatient (IN) | payer MEDICARE ==
[2017-05-04] MEDS: CEPHALEXIN 500 MG CAPSULE PO SCH ×2 (17:12→21:34)
[2017-05-04] MEDS ORDERED: METOPROLOL TART 50 MG TABLET PO ONE (20:22)
[2017-05-04] MEDS: HYDROCODONE/APAP 10/325 TABLET PO PRN (20:31)
[2017-05-05] MEDS: HYDROCODONE/APAP 10/325 TABLET PO PRN (04:25)
[2017-05-05] MEDS ORDERED: PANTOPRAZOLE SODIUM 40 MG TABLET PO ONE (08:58)
[2017-05-05] MEDS: CEPHALEXIN 500 MG CAPSULE PO SCH ×3 (09:58→21:49)
[2017-05-05] MEDS: ASPIRIN 81 MG TABEC PO SCH (09:58)
[2017-05-05] MEDS: DULOXETINE HCL 30 MG CAPSULE.DR PO SCH (09:58)
[2017-05-05] MEDS ORDERED: METOPROLOL TART 50 MG TABLET PO SCH (10:00)
[2017-05-05] MEDS ORDERED: TAMSULOSIN HCL 0.4 MG CAP.ER.24H PO SCH (10:00)
[2017-05-05] MEDS: LISINOPRIL 20 MG TABLET PO SCH (10:01)
[2017-05-05] MEDS: METOPROLOL TART 50 MG TABLET PO SCH ×2 (10:01→21:49)
[2017-05-05] MEDS: PHENAZOPYRIDINE HCL 95 MG TABLET PO PRN (10:18)
[2017-05-05] MEDS: HYDROCODONE/APAP 5/325MG TABLET PO PRN ×2 (15:41→21:50)
[2017-05-05] MEDS: LORAZEPAM 0.5 MG TABLET PO PRN (21:48)
[2017-05-06] MEDS: PANTOPRAZOLE SODIUM 40 MG TABLET PO SCH (06:47)
--- NOTE | 2017-05-06 08:50 | History & Physical ---
History of Present Illness - Date Date of Service for History & Physical: 05/05/17 - History of Present Illness Admitting Diagnosis: Deconditioning due to weakness and urinary tract infection History of Present Illness: 72yo female admitted to [facility] due to deconditioning from recent hospitalization. She has a history of HTN, CHF, GERD, IBS, arthritis, depression , anxiety, chronic anemia, hysterectomy, cholecystectomy, and was a former smoker. Patient was recently admitted to [facility] for UTI and was found to have some generalized weakness. It was recommended ta she discharge home with home therapy but patient declined at that time. She did end up having to be readmitted to [facility] for continued weakness. She was treated for UTI along with nausea/vomiting and generalized weakness. She improved and was transferred to [facility] to continue working on strength and physical functioning. 05/05/17- Patient says she is feeling better. states the only time she is having nausea now is when she tries to swallow larger pills. She says her appetite has been good and she has not had any diarrhea, abdominal pain, frequent urination, or pain with urination. 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 Level of Education: High School Preferred Method of Learning: Seeing, Doing, Reading Comprehension Ability: No Impairment Able to Read: Yes Able to Write: Yes Select best description of speech pattern: Clear Speech Ability to express ideas and wants: Understood Understanding verbal content: Understands - Psychosocial Well-Being Usual Living Arrangement: Alone Living Arrangement Comment: going to be moving in with son temporarily - Physical Functioning Activity Level: Up as tolerated Turning: Self ad naomy ROM Ability: Within Normal Limits Assistive Devices: None Ambulation Ability: Needs Assist Bed Mobility: Needs Assist Transfer Ability: Needs Assist Bathing Ability: Needs Assist Personal Hygiene: Needs Assist Dressing Ability: Needs Assist Eating (Feeding) Ability: Independent Toileting Ability: Needs Assist Administer Own Medication: Independent - Continence Bowel Pattern: Normal for Patient Bladder Pattern: Frequency, Urgency Urinary Incontinence: Urge - Dental Status Unable to examine: No Broken or loosely fitting full or partial dentures: No No natural teeth or tooth fragment(s) (edentulous): Yes Abnormal mouth tissue (ulcers, masses, oral lesions, etc.): No Obvious or likely cavity or broken natural teeth: No Inflamed or bleeding gums or loose natural teeth: No Mouth/facial pain, discomfort or difficulty chewing: No - Nutrition Screening Poor oral intake > 1 week: Yes Unplanned weight loss in specified time frame: No Nutrition Support via tube feedings or parenteral nutrition: No Pressure Ulcer: No Significantly underweight define as BMI <18.5 kg/m2: No Albumin <2.5mg/dL: No Persistent nausea/vomiting/diarrhea >3 days: No Difficulty chewing/swallowing/mouth sores: No Admitting Diagnosis: Yes Nutrition Risk Score: High Risk Review of Systems Constitutional: Reports: As per HPI. Denies: Chills, Fever, Malaise, Night sweats, Weakness, Weight change Eyes: Denies: Eye pain, Vision change ENT: Denies: Congestion, Ear pain, Throat pain Respiratory: Denies: Cough, Dyspnea Cardiovascular: Denies: Arrhythmia, Chest pain, Edema, Palpitations Endocrine: Denies: Fatigue Gastrointestinal: Reports: Diarrhea, Nausea (mild). Denies: Abdominal pain, Constipation Musculoskeletal: Reports: Arthralgia Neurological: Denies: Confusion, Headache, Tremors Psychiatric: Reports: Anxiety, Depression Hematological/Lymphatic: Reports: Anemia Past Medical History - SOCIAL HISTORY Smoking Status: Former smoker - SURGICAL HISTORY Past Surgical History: Hysterectomy, Cholecystectomy, Colonoscopy - RESPIRATORY Hx Respiratory Disorders: Yes Hx Pneumonia: Yes (2011 or 2012) - CARDIOVASCULAR Hx Cardio Disorders: Yes Hx CHF: Yes Hx Hypertension: Yes - NEURO Hx Neuro Disorders: No - GI Hx GI Disorders: Yes Hx Abdominal Pain: Yes (lower mid radiates RLQ) Hx Reflux: Yes Hx Irritable Bowel: Yes Hx Pancreatitis: Yes (multiple time 2014) - Hx Genitourinary Disorders: No Hx Kidney Stones: No - ENDOCRINE Hx Endocrine Disorders: No Hx Diabetes: No Hx Thyroid Disease: No - MUSCULOSKELETAL Hx Musculoskeletal Disorders: Yes Hx Arthritis: Yes Hx Osteoporosis: Yes - PSYCH Hx Psych Problems: Yes Hx Anxiety: Yes Hx Depression: Yes - HEMATOLOGY/ONCOLOGY Hx Hematology/Oncology Disorders: Yes Hx Anemia: Yes (currently) Hx Blood Transfusions: Yes (when in the hospital w/pancreatitis) Family Medical History Any Significant Family History?: Yes Hx Diabetes: Mother, Brother/Sister H&P Meds/Allergies - Allergies Allergies: Allergies Allergy/AdvReac Type Severity Reaction Status Date / Time codeine [CODEINE] Allergy Unknown HEADACHE Verified 04/11/17 09:15 Penicillins [PENICILLINS] Allergy Unknown HIVES Verified 04/11/17 09:15 - Home Medications Home Medications Medication Instructions Recorded Confirmed Last Taken Aspirin [Ecotrin] 81 mg PO DAILY 05/04/17 05/04/17 05/04/17 81 Dicyclomine HCl [Bentyl] 10 mg PO Q8H PRN 05/04/17 05/04/17 Unknown Duloxetine HCl [Cymbalta] 60 mg PO DAILY 05/04/17 05/04/17 05/04/17 60 Hydrocodone/Acetaminophen 0.5 - 1 tab PO Q6H PRN 05/04/17 05/04/17 Unknown [Hydrocodone/Acetaminophen 5mg/325mg] Tamsulosin HCl [Flomax] 0.4 mg PO DAILY 05/04/17 05/04/17 05/04/17 0.4 Previous Rx's Medication Instructions Recorded Ondansetron [Zofran Odt] 4 mg PO Q8H #15 tab.rapdis 10/12/16 Diazepam [Valium] 5 mg PO Q8H #12 tab 04/11/17 - Active Medications Active Medications: Current Medications Hydrocodone Bitart/Acetaminophen ([place] 5mg/325mg) 1 each PO Q6H PRN PRN Reason: Pain - General Last Admin: 05/05/17 21:50 Dose: 1 each Aspirin (Ecotrin (Ec)) 81 mg PO DAILY [facility] Last Admin: 05/05/17 09:58 Dose: 81 mg Cephalexin HCl (Keflex) 500 mg PO TID [facility] Stop: 05/14/17 16:01 Last Admin: 05/05/17 21:49 Dose: 500 mg Duloxetine HCl (Cymbalta) 60 mg PO DAILY [facility] Last Admin: 05/05/17 09:58 Dose: 60 mg Lisinopril (Zestril) 40 mg PO DAILY [facility] Last Admin: 05/05/17 10:01 Dose: 40 mg Lorazepam (Ativan) 1 mg PO QHS PRN PRN Reason: ANXIETY Last Admin: 05/05/17 21:48 Dose: 1 mg Metoprolol Tartrate (Lopressor) 100 mg PO BID [facility] Last Admin: 05/05/17 21:49 Dose: 100 mg Ondansetron HCl (Zofran Odt) 4 mg SL Q8H PRN PRN Reason: NAUSEA/VOMITING [facility] Last Admin: 05/06/17 06:47 Dose: 40 mg Phenazopyridine HCl (Azo Urinary Pain Relief) 95 mg PO TID PRN PRN Reason: frequent urination Last Admin: 05/05/17 10:18 Dose: 95 mg Physical Exam - Vital Signs Vital Signs: Vital Signs - Last 24 Hrs Temp Pulse Resp BP Pulse Ox 05/05/17 20:00 99.0 F 58 L 18 162/97 97 - General General Appearance: Alert, Oriented x3, Cooperative, No acute distress - Head Head exam: Normal inspection - Eye Eye exam: Normal appearance, PERRL - ENT ENT exam: Normal exam, Mucous membranes moist, Normal external ear exam, Normal orophraynx, TM's normal bilaterally - Neck Neck exam: Normal inspection, Full ROM. negative: Tenderness - Respiratory Respiratory exam: Normal lung sounds bilaterally. negative: Respiratory distress - Cardiovascular Cardiovascular Exam: Regular rate, Normal rhythm, Normal heart sounds - GI/Abdominal GI/Abdominal exam: Soft, Normal bowel sounds. negative: Tenderness - Extremities Extremities exam: Normal inspection, Full ROM, Normal capillary refill. negative: Tenderness - Back Back exam: Reports: Normal inspection, Full ROM. Denies: CVA tenderness (R), CVA tenderness (L), Muscle spasm, Rash noted, Tenderness - Neurological Neurological exam: Alert, Normal gait, Oriented X3, Reflexes normal - Psychiatric Psychiatric exam: Normal affect, Normal mood - Skin Skin exam: Dry, Intact, Normal color, Warm H&P Results - Labs Result Diagrams: 05/06/17 08:54 05/06/17 08:54 Discharge Potential - Discharge Needs Community Services Used Prior to Admission: None Patient Discharge Plan Description: Return Home Community Services Needed at Discharge: None Plan - Swing Bed Certification Initial Certification Due: 05/04/17 14 Day Re-Cert Due: 05/18/17 44 Day Re-Cert Due: 06/17/17 74 Day Re-Cert Due: 07/17/17 - Detailed Diagnosis and Plan (1) Physical deconditioning Current Visit: Yes Status: Acute Base Code: R53.81 - OTHER MALAISE Comment : 05/05/17- deconditioned 2/2 recent hospitalization and UTI. -PT/OT M-F to improve strength and physical functioning (2) UTI (urinary tract infection) Current Visit: Yes Status: Acute Base Code: N39.0 - URINARY TRACT INFECTION , SITE NOT SPECIFIED Comment: 05/05/17- Improving. Nausea/vomiting resolved. -continue keflex 500mg po TID for 10 days course per sensitivity report from [facility] (3) Full code status Current Visit: Yes Status: Acute Base Code: Z78.9 - OTHER SPECIFIED HEALTH STATUS Comment: 05/05/17- patient is full code
--- NOTE | 2017-05-06 08:51 | Swing Bed Certification/Recert ---
Initial Certification Due: 05/04/17 14 Day Re-Cert Due: 05/18/17 44 Day Re-Cert Due: 06/17/17 74 Day Re-Cert Due: 07/17/17 CERTIFICATION 3 CERTIFICATION OF PATIENT ADMISSION Required at time of admission. Due: 05/04/17 I certify that SNF services are required to be given on an inpatient basis because of the above named patient's need for alf care on a continuing basis for the condition(s) for which he/she was receiving inpatient hospital services prior to his/her transfer to the SNF. The patient's current needs for skilled care includes: [ generalized weakness due to UTI and hospitalization, age] Sophy Nice 05/06/17
[2017-05-06 09:25] LABS: BASO % 0.9 % (0-6); EOS % 5.3 % (0-6); HEMOGLOBIN 12.2 gm/dl (11.6-16.0); LYMPH % 24.8 % (16-45); MEAN CELL VOLUME 79.6 fl (81-97); MEAN CORPUSCULAR HEMOGLOBIN 26.2 pg (27-33); MEAN PLATELET VOLUME 11.6 fl (7.4-10.4); PLATELET COUNT 356 K/uL (130-400); RED BLOOD COUNT 4.65 M/uL (3.80-5.40); RED CELL DISTRIBUTION WIDTH 17.5 % (11.5-14.5); WHITE BLOOD COUNT W/O DIFF 5.5 K/uL (4.2-12.2)
[2017-05-06 09:33] LABS: BLOOD UREA NITROGEN 10 mg/dL (8-23); CREATININE 0.8 mg/dL (0.5-0.9); EST GLOMERULAR FILTRATION RATE > 60 mL/min; GLUCOSE,RANDOM 93 mg/dL (74-109)
--- NOTE | 2017-05-06 09:37 | Rehab Evaluation ---
Patient Information - Patient Information Diagnosis: Deconditioning d/t weakness & UTI Ordered Treatment: OT Evaluate and Treat Status: Initial Evaluation Surgery: No History: Detail (Pt admitted from [facility] on 05/04/17 after admittance for UTI and deconditioning.) Past Medical/Surgical Hx: PAST MEDICAL/SURGICAL HISTORY Past Surgical History Hysterectomy, Cholecystectomy, Colonoscopy PMH - Respiratory Hx Respiratory Disorders Yes Hx Pneumonia Yes: 2011 or 2012 PMH - Cardiovascular Hx Cardiovascular Disorders Yes Hx Congestive Heart Failure Yes Hx Hypertension Yes PMH - Neuro Hx Neurological Disorders No PMH - GI Hx Gastrointestinal Disorders Yes Hx Abdominal Pain Yes: lower mid radiates RLQ Hx Gastroesophageal Reflux Yes Hx Irritable Bowel Yes Hx Pancreatitis Yes: multiple time 2014 PMH - Hx Genitourinary Disorders No Hx Kidney Stones No PMH - Endocrine Hx Endocrine Disorders No Hx Diabetes No Hx Thyroid Disease No PMH - Musculoskeletal Hx Musculoskeletal Disorders Yes Hx Arthritis Yes Hx Osteoporosis Yes PMH - Psych Hx Psychiatric Problems Yes Hx Anxiety Yes Hx Depression Yes PMH - Hematology/Oncology Hx Hematology/Oncology Yes Disorders Hx Anemia Yes: currently Premorbid Status: Detail (Pt was ind. with all ADLs and IADLs [employer]. Pt prefers to take baths when at home. She ambulated without device and has no ADL or DME equipment at home.) Social History: Detail (Pt lives alone but will be staying with her son until fully recovered once d/c'd from [facility]. Her son lives in a Bi-level home w/ 1 step to enter and 1-sided railing. Once inside there are 4 steps to go down to basement level and 5-6 steps to upper level. Son will be able to provide assistance for meals. Son's home consists of 1 1/2 baths with one being a walk in shower w/ curtain enclosure and the other a tub/shower combo with curtain enclosure. No grab bars in shower or around toilet. Standard toilet.) Precautions: Roberts, Fall - Time With Patient Total Time Spent With Patient (Min): 25 (Eval completed with PT) Treatment Procedures: Detail (OT eval LOW) Subjective Information - Subjective Information Per Patient Objective Data - Mental Status Patient Orientation: Oriented x3 - Visual Perception Appears within normal limits for therapeutic activities - ROM Within normal limits (BUE's) - Strength/Tone Not within normal limits (Lokesh shld flex, ext, add, and abd grossly 3+/5. Elbow flex = 4/5 and elbow ext 3+/5. Weakened gross grasp.) - Coordination Appears within normal limits for therapeutic activities - Transfers Independent (Sit<>stand although pt demonstrated hesitancy to initiate.) - Gait Detail (Pt amb w/o device but with Lokesh UE's in about 30-40 deg abd and tightly clenched fists. It appears she is trying to find stabilization in Lokesh UE's to make up for weakness and shakiness of Lokesh LE's.) - ADL's/IADL's Detail (Pt currently up w/ nsg for toileting and drsg but able to complete Ind per nsg. Pt ind w/ sock don/doff sitting at EOB but tries to limit trunk flexion.) Therapy Assessment - Therapy Assessment Detail (Pt presents with overall weakness BUE's, decreased endurance for ADLs, decreased balance, and decreased safety w/ functional mobility. Feel pt would benefit from skilled OT to address BUE weakness, decreased endurance for ADLs, and safety concerns.) Problem List - Problem List Occupational Therapy Problem List: Detail (1. Weakness BUE's 2. Decreased endurance for completing ADLs 3. Decreased safe functional mobility) Goals - Goals Occupational Therapy Goals: 1. Pt to show increased endurance for ind. with ADLs. 2. Increase MMT BUE's to grossly 4/5. 3. Pt to be safe with functional mobility and ambulating household distances. Prognosis - Prognosis Good Plan - Plan Occupational Therapy Plan: OT to treat 2-4x a week M-F to address decreased endurance for ADLs, BUE weakness, and decreased safety during functional mobility.
[2017-05-06] MEDS: LISINOPRIL 20 MG TABLET PO SCH (09:39)
[2017-05-06] MEDS: DULOXETINE HCL 30 MG CAPSULE.DR PO SCH (09:40)
[2017-05-06] MEDS: HYDROCODONE/APAP 5/325MG TABLET PO PRN ×2 (09:40→17:39)
[2017-05-06] MEDS: CEPHALEXIN 500 MG CAPSULE PO SCH ×3 (09:40→22:02)
[2017-05-06] MEDS: ASPIRIN 81 MG TABEC PO SCH (09:40)
[2017-05-06] MEDS: METOPROLOL TART 50 MG TABLET PO SCH ×2 (09:41→22:00)
--- NOTE | 2017-05-06 09:42 | Rehab Evaluation ---
Patient Information - Patient Information Diagnosis: UTI, deconditioning Ordered Treatment: PT Evaluate and Treat Status: Initial Evaluation History: Detail (The patient was admitted from [facility] to [facility] Bed Unit for Rehabiliatation.) Past Medical/Surgical Hx: PAST MEDICAL/SURGICAL HISTORY Past Surgical History Hysterectomy, Cholecystectomy, Colonoscopy PMH - Respiratory Hx Respiratory Disorders Yes Hx Pneumonia Yes: 2011 or 2012 PMH - Cardiovascular Hx Cardiovascular Disorders Yes Hx Congestive Heart Failure Yes Hx Hypertension Yes PMH - Neuro Hx Neurological Disorders No PMH - GI Hx Gastrointestinal Disorders Yes Hx Abdominal Pain Yes: lower mid radiates RLQ Hx Gastroesophageal Reflux Yes Hx Irritable Bowel Yes Hx Pancreatitis Yes: multiple time 2014 PMH - Hx Genitourinary Disorders No Hx Kidney Stones No PMH - Endocrine Hx Endocrine Disorders No Hx Diabetes No Hx Thyroid Disease No PMH - Musculoskeletal Hx Musculoskeletal Disorders Yes Hx Arthritis Yes Hx Osteoporosis Yes PMH - Psych Hx Psychiatric Problems Yes Hx Anxiety Yes Hx Depression Yes PMH - Hematology/Oncology Hx Hematology/Oncology Yes Disorders Hx Anemia Yes: currently Premorbid Status: Detail (The pt. lived alone prior to hospitalization and ambulated with no assistive device.) Social History: Detail (Upon discharge, pt. will be living with her son in a two -level home with a basement. There is one step at the entrance of the home, 4 steps to go down to the basement with one railing, and 6-7 steps to ascend to the second floor with a singe railing. There is a bathroom on the upper level with a tub and normal toilet with no grab bar. There is a walk in shower with no grab bar on the first floor with a standard toilet and no grab bar.) Precautions: Marshall, Fall - Time With Patient Total Time Spent With Patient (Min): 30 Treatment Procedures: Detail (Initial PT evaluation) Subjective Information - Subjective Information Per Patient (At the beginning of the evaluation, pt. reported not having any pain. When assessing lower extremity sensation, pt. reported having pain with touch on her legs bilaterally. Pt. complained of pain in her legs upon standing , but did not give an intensity rating.) Objective Data - Pain Pain Present: Yes - Mental Status Patient Orientation: Oriented x3 - Visual Perception Appears within normal limits for therapeutic activities - ROM Within normal limits - Strength/Tone Not within normal limits (LE Strength: carrie Hip flexors 3+/5, carrie hip ABD 3+/5, carrie hip ADD 4-/5, carrie hip extensors 4-/5, R knee extensors 3+/5, L knee extensors 4-/5, carrie knee flexors 4/5, carrie plantarflexors 4/5, carrie dorsiflexors 4 -/5, carrie extensor hallcis longus 3/5.) - Coordination Appears within normal limits for therapeutic activities - Bed Mobility Needs Assist (Did not assess during evaluation.) - Transfers Independent (Sit to stand WNL.) - Balance Balance Sitting: Good Balance Standing: Fair (Have not finished assessing using the Tinetti assessment tool. Pt. was slightly hesitant upon ambulating.) - Sensation Deficit (Hypersensitive to LE bilat with light touch from hip to ankle.) - Gait Detail (Pt. was CGA for a distance of 48 ft. with ambulation and did not use an AD. Pt. was hesitant upon ambulation and exhibited a widened base of support with shorter step length and increased external rotation in her R LE. Pt. exhibited decreased trunk rotation and held her arms out to the side into extension with her fists clenched.) Therapy Assessment - Therapy Assessment Detail (Pt. exhibits bilat LE extremity weakness, sensation impairment, gait impairments and balance deficits. We believe pt. would benefit with the use of an AD (single point cane, standard or front-wheeled walker) with ambuation. Pt. denies use of AD in the past and was reluctant in using one. Pt. would benefit from PT to help improve these impairments and to help the pt. meet her goals. Pt. is categorized a "low" PT evaluation due to a presentation of stable condition.) Problem List - Problem List Physical Therapy Problem List: Detail (1. Bilateral lower extremity muscle weakness 2. Lower extremity sensation impairements 3. Gait deviations 4. Balance deficits 5. Bilat lower extremity pain) Goals - Goals Physical Therapy Goals: 1. PT will formally assess pt.'s balance with the Tinetti assessment tool. 2. PT will assess pt.'s bed mobility. 3. Pt. will be able to ascend/descend 6-7 stairs with supervision to get to the second floor of the house. 4. Pt. will be independent in all transfers. 5. Pt. will exhibit proper balance strategies during functional activites to allow safety in the home environment. 6. Pt. will exhibit improved strength by 1 MMT grade in all lower extremity musculature. 7. Pt. will demonstrate proper gait mechanics independently with or without the use of a standard walker or single point cane. 8. Pt. will not present with pain in her lower extremities with weight bearing and ambulation. Prognosis - Prognosis Good (If pt. is compliant with recommended assistive device for ambulation.) Plan - Plan Physical Therapy Plan: PT 1-2x a day Saturday-Saturday for gait training, balance training, lower extremity strengthening, transfer training, and bed mobility.
[2017-05-06] MEDS: PHENAZOPYRIDINE HCL 95 MG TABLET PO PRN (14:20)
[2017-05-06] MEDS: LORAZEPAM 0.5 MG TABLET PO PRN (22:02)
[2017-05-07] MEDS: HYDROCODONE/APAP 5/325MG TABLET PO PRN ×3 (00:45→15:37)
[2017-05-07] MEDS: PANTOPRAZOLE SODIUM 40 MG TABLET PO SCH (06:56)
[2017-05-07] MEDS: CEPHALEXIN 500 MG CAPSULE PO SCH ×4 (08:26→21:40)
[2017-05-07] MEDS: DULOXETINE HCL 30 MG CAPSULE.DR PO SCH ×2 (08:26→09:37)
[2017-05-07] MEDS: METOPROLOL TART 50 MG TABLET PO SCH ×3 (08:26→21:40)
[2017-05-07] MEDS: LISINOPRIL 20 MG TABLET PO SCH ×2 (08:27→09:39)
[2017-05-07] MEDS: ASPIRIN 81 MG TABEC PO SCH ×2 (08:27→09:38)
[2017-05-07] MEDS: PHENAZOPYRIDINE HCL 95 MG TABLET PO PRN (08:36)
--- NOTE | 2017-05-07 10:23 | Occupational Therapy Tx Note ---
Occupational Therapy Tx Note - Treatment Note Tolerated: Good Total Time Spent With Patient: 35 Occupational Therapy Treatment Note: Detail (Pt. donned carrie. socks seated EOB independently. Sit<>stand and functional mobility SBA (pt. did not use walker) from EOB to bathroom sink. Pt. stood SBA at sink for 15-20 mins. while completing morning routine independently to wash face, upper body, and brush teeth. Seated EOB, BUE resistive exercises with yellow theraband 1x10 ea. of shd flex, ext, abd/add, elbow ext & flex. Pt. may benefit from HEP BUE program.) Occupational Therapy Problem List: Detail (1. Weakness BUE's 2. Decreased endurance for completing ADLs 3. Decreased safe functional mobility) Occupational Therapy Goals: 1. Pt to show increased endurance for ind. with ADLs. 2. Increase MMT BUE's to grossly 4/5. 3. Pt to be safe with functional mobility and ambulating household distances. Occupational Therapy Plan: OT to treat 2-4x a week M- to address decreased endurance for ADLs, BUE weakness, and decreased safety during functional mobility.
--- NOTE | 2017-05-07 14:23 | Physical Therapy Tx Note ---
Physical Therapy Tx Note - Treatment Note Tolerated: Good Total Time Spent With Patient: 40 Physical Therapy Tx Note: Detail (The patient was in bed when PT arrived and was requesting to go the bathroom and get dressed. The patient ambulated 11 feet x 1 without device with supervision of 1 for safety. The patient held R LE in a knee flexion and did not put weight are her R LE. The patient was taken to PT department and was instructed with both ambulation with wheeled walker and standard cane. Use of wheeled walker was recommended due to patient unable to weight bear on R LE. MTT techniques were also completed to reduce LE pain , gentle bilateral LE pull, MFR R piriformis, grade 1 sacral mobilization. Patient was tender to palpation of hamstring insertion and less after manual therapy techniques. The patient was fitted for a wheeled walker and placed in room, RN was notified.) Physical Therapy Problem List: Detail (1. Bilateral lower extremity muscle weakness 2. Lower extremity sensation impairements 3. Gait deviations 4. Balance deficits 5. Bilat lower extremity pain) Physical Therapy Goals: 1. PT will formally assess pt.'s balance with the Tinetti assessment tool. 2. PT will assess pt.'s bed mobility. 3. Pt. will be able to ascend/descend 6-7 stairs with supervision to get to the second floor of the house. 4. Pt. will be independent in all transfers. 5. Pt. will exhibit proper balance strategies during functional activites to allow safety in the home environment. 6. Pt. will exhibit improved strength by 1 MMT grade in all lower extremity musculature. 7. Pt. will demonstrate proper gait mechanics independently with or without the use of a standard walker or single point cane. 8. Pt. will not present with pain in her lower extremities with weight bearing and ambulation. Physical Therapy Plan: PT 1-2x a day Saturday-Saturday for gait training, balance training, lower extremity strengthening, transfer training, and bed mobility.
[2017-05-08] MEDS: HYDROCODONE/APAP 5/325MG TABLET PO PRN ×3 (00:29→16:18)
[2017-05-08] MEDS: LORAZEPAM 0.5 MG TABLET PO PRN (00:29)
[2017-05-08] MEDS: PANTOPRAZOLE SODIUM 40 MG TABLET PO SCH (06:23)
[2017-05-08] MEDS: PHENAZOPYRIDINE HCL 95 MG TABLET PO PRN ×2 (08:38→16:18)
[2017-05-08] MEDS: DULOXETINE HCL 30 MG CAPSULE.DR PO SCH (10:08)
[2017-05-08] MEDS: METOPROLOL TART 50 MG TABLET PO SCH ×2 (10:08→21:16)
[2017-05-08] MEDS: CEPHALEXIN 500 MG CAPSULE PO SCH ×3 (10:08→21:16)
[2017-05-08] MEDS: LISINOPRIL 20 MG TABLET PO SCH (10:09)
[2017-05-08] MEDS: ASPIRIN 81 MG TABEC PO SCH (10:09)
--- NOTE | 2017-05-08 12:14 | Occupational Therapy Tx Note ---
Occupational Therapy Tx Note - Treatment Note Tolerated: Good Total Time Spent With Patient: 30 Occupational Therapy Treatment Note: Detail (Pt. completed her morning ADL routine with set-up of supplies (to conserve energy and manage time). Tasks included: standing at sink to bathe UB, brush teeth, wash face; toileting; UB & LB dressing to don sweat pants, t-shirt, undergarments, & socks; brush hair. Pt. stated BUE fatigue throughout session & required multiple quick rest breaks to rest arms by sides. Pt. required SBA sit<>stand transfers from bed<>walker and min VC and pt. educ. to maneuver and position walker to maximize safety, but completed all ADL tasks without assistance.) Occupational Therapy Problem List: Detail (1. Weakness BUE's 2. Decreased endurance for completing ADLs 3. Decreased safe functional mobility) Occupational Therapy Goals: 1. Pt to show increased endurance for ind. with ADLs. 2. Increase MMT BUE's to grossly 4/5. 3. Pt to be safe with functional mobility and ambulating household distances. Occupational Therapy Plan: OT to treat 2-4x a week M- to address decreased endurance for ADLs, BUE weakness, and decreased safety during functional mobility.
--- NOTE | 2017-05-08 16:01 | Physical Therapy Tx Note ---
Physical Therapy Tx Note - Treatment Note Tolerated: Good Total Time Spent With Patient: 40 Physical Therapy Tx Note: Detail (The patient was in bed when PT arrived. The patient had continued complaints of R buttock radiating into R calf pain. The patient ambulated with wheeled walker 50 feet x 1 with CG, improved weight bearing was noted on R LE. The patient's alignment exhibited R anterior rotated ilium. MET correction of R anterior rotated ilium. Leg pull R LE. MFR of R hamstrings . Core strengthening exercises: supine abdominal isometrics, gluteal sets, hip adductor squeezes, hip abduction , gentle nerve glides SLR with ankle pumps x 2 reps. The patient ambulated to bathroom with wheeled walker , decreased weight bering on R LE was noted.) Physical Therapy Problem List: Detail (1. Bilateral lower extremity muscle weakness 2. Lower extremity sensation impairements 3. Gait deviations 4. Balance deficits 5. Bilat lower extremity pain) Physical Therapy Goals: 1. PT will formally assess pt.'s balance with the Tinetti assessment tool. 2. PT will assess pt.'s bed mobility. 3. Pt. will be able to ascend/descend 6-7 stairs with supervision to get to the second floor of the house. 4. Pt. will be independent in all transfers. 5. Pt. will exhibit proper balance strategies during functional activites to allow safety in the home environment. 6. Pt. will exhibit improved strength by 1 MMT grade in all lower extremity musculature. 7. Pt. will demonstrate proper gait mechanics independently with or without the use of a standard walker or single point cane. 8. Pt. will not present with pain in her lower extremities with weight bearing and ambulation. Physical Therapy Plan: PT 1-2x a day Saturday-Saturday for gait training, balance training, lower extremity strengthening, transfer training, and bed mobility.
[2017-05-09] MEDS: HYDROCODONE/APAP 5/325MG TABLET PO PRN ×3 (00:10→17:15)
[2017-05-09] MEDS: LORAZEPAM 0.5 MG TABLET PO PRN (00:10)
[2017-05-09] MEDS: PANTOPRAZOLE SODIUM 40 MG TABLET PO SCH (06:50)
[2017-05-09] MEDS: CEPHALEXIN 500 MG CAPSULE PO SCH ×3 (09:21→22:22)
[2017-05-09] MEDS: ASPIRIN 81 MG TABEC PO SCH (09:21)
[2017-05-09] MEDS: METOPROLOL TART 50 MG TABLET PO SCH ×2 (09:21→23:23)
[2017-05-09] MEDS: DULOXETINE HCL 30 MG CAPSULE.DR PO SCH (09:21)
[2017-05-09] MEDS: LISINOPRIL 20 MG TABLET PO SCH (09:21)
--- NOTE | 2017-05-09 11:42 | Physical Therapy Tx Note ---
Physical Therapy Tx Note - Treatment Note Tolerated: Good Total Time Spent With Patient: 30 Physical Therapy Tx Note: Detail (Pt asleep in chair upon arrival. Awoke easily , cooperative for therapy. Nrsg reports having given pt pain medication about 30 minutes prior. Pt complains of burning pain in R hip/thigh to knee. Performed 10 reps each of marching, long arc quads, isometric hamstring curls, ankle pumps, isometric hip adduction, isometric hip abduction. Sit/stand to front-wheeled walker w/CGA, ambulated to bedside w/front-wheeled walker and CGA w/little weight bearing on R LE. Reports pain increases with straightening leg and putting weight on it. Independent w/bed mobility and positioning. Assessed pelvic alignment/mobility, tissue texture. Mobilized R fibular head posteriorly and R knee into extension, performed soft tissue mobilization to R TFL, IT band, medial hamstring. Call light and bedside table placed within reach, as well as socks and walker. Nrsg notified.) Physical Therapy Problem List: Detail (1. Bilateral lower extremity muscle weakness 2. Lower extremity sensation impairements 3. Gait deviations 4. Balance deficits 5. Bilat lower extremity pain) Physical Therapy Goals: 1. PT will formally assess pt.'s balance with the Tinetti assessment tool. 2. PT will assess pt.'s bed mobility. 3. Pt. will be able to ascend/descend 6-7 stairs with supervision to get to the second floor of the house. 4. Pt. will be independent in all transfers. 5. Pt. will exhibit proper balance strategies during functional activites to allow safety in the home environment. 6. Pt. will exhibit improved strength by 1 MMT grade in all lower extremity musculature. 7. Pt. will demonstrate proper gait mechanics independently with or without the use of a standard walker or single point cane. 8. Pt. will not present with pain in her lower extremities with weight bearing and ambulation. Prognosis: Good Physical Therapy Plan: PT 1-2x a day Saturday-Saturday for gait training, balance training, lower extremity strengthening, transfer training, and bed mobility.
--- NOTE | 2017-05-09 15:53 | Physical Therapy Tx Note ---
Physical Therapy Tx Note - Treatment Note Tolerated: Good Total Time Spent With Patient: 40 Physical Therapy Tx Note: Detail (Patient was sleeping in bed upon [employer] arrival. Patient states right knee and lateral thigh is sore. Patient transferred supine to sit independently. Patient transferred sit to and from stand CGA x1. Patient ambulated 146 feet with wheeled walker SBA x1. Patient performed the following exercises x10 reps each: seated marching, seated heel raises, seated toe raises, LAQ, seated hamstring curls with red theraband, seated hip abduction with red theraband, seated isometric hip adduction, glut squeezes, and abdominal isometrics. Patient transferred sit to sidelying independently. MTT x15 minutes to right TFL/IT band, and hamstrings with patient sidelying. Patient tolerated treatment well. Patient reports LE feels better after treatment. Patient was left sidelying in bed with call light within reach.) Physical Therapy Problem List: Detail (1. Bilateral lower extremity muscle weakness 2. Lower extremity sensation impairements 3. Gait deviations 4. Balance deficits 5. Bilat lower extremity pain) Physical Therapy Goals: 1. PT will formally assess pt.'s balance with the Tinetti assessment tool. 2. PT will assess pt.'s bed mobility. 3. Pt. will be able to ascend/descend 6-7 stairs with supervision to get to the second floor of the house. 4. Pt. will be independent in all transfers. 5. Pt. will exhibit proper balance strategies during functional activites to allow safety in the home environment. 6. Pt. will exhibit improved strength by 1 MMT grade in all lower extremity musculature. 7. Pt. will demonstrate proper gait mechanics independently with or without the use of a standard walker or single point cane. 8. Pt. will not present with pain in her lower extremities with weight bearing and ambulation. Prognosis: Good Physical Therapy Plan: PT 1-2x a day Saturday-Saturday for gait training, balance training, lower extremity strengthening, transfer training, and bed mobility.
[2017-05-10] MEDS: LORAZEPAM 0.5 MG TABLET PO PRN ×2 (03:16→21:25)
[2017-05-10] MEDS: HYDROCODONE/APAP 5/325MG TABLET PO PRN ×3 (03:16→21:25)
[2017-05-10] MEDS: PANTOPRAZOLE SODIUM 40 MG TABLET PO SCH (08:18)
[2017-05-10] MEDS: CEPHALEXIN 500 MG CAPSULE PO SCH ×3 (10:23→21:22)
[2017-05-10] MEDS: METOPROLOL TART 50 MG TABLET PO SCH ×2 (10:23→21:22)
[2017-05-10] MEDS: ASPIRIN 81 MG TABEC PO SCH (10:23)
[2017-05-10] MEDS: LISINOPRIL 20 MG TABLET PO SCH (10:23)
[2017-05-10] MEDS: DULOXETINE HCL 30 MG CAPSULE.DR PO SCH (10:23)
--- NOTE | 2017-05-10 10:38 | Physical Therapy Tx Note ---
Physical Therapy Tx Note - Treatment Note Tolerated: Good Total Time Spent With Patient: 40 Physical Therapy Tx Note: Detail (Pt in bed upon arrival, awake/alert, cooperative for therapy. Independent w/bed mobility and with putting socks on/ taking off. Independent sit/stand; ambulated w/front wheeled walker out to hallway and back to bedside (about 100 feet total) with SBA. Improved weight bearing on R LE, improved stride w/R LE, good balance. Performed 10 reps each of marching, LAQ, isometric hamstrings, isometric hip adduction, isometric hip abduction, ankle dorsiflexion, ankle plantarflexion. Soft tissue mobilization to R anterior thigh, iliotibial band, medial hamstring. Independent self- positioning in bed; placed bedside table, call light in reach. Tinetti score 22 /28 (04/23 gait; 22/ balance).) Physical Therapy Problem List: Detail (1. Bilateral lower extremity muscle weakness 2. Lower extremity sensation impairements 3. Gait deviations 4. Balance deficits 5. Bilat lower extremity pain) Physical Therapy Goals: 1. PT will formally assess pt.'s balance with the Tinetti assessment tool. 2. PT will assess pt.'s bed mobility. 3. Pt. will be able to ascend/descend 6-7 stairs with supervision to get to the second floor of the house. 4. Pt. will be independent in all transfers. 5. Pt. will exhibit proper balance strategies during functional activites to allow safety in the home environment. 6. Pt. will exhibit improved strength by 1 MMT grade in all lower extremity musculature. 7. Pt. will demonstrate proper gait mechanics independently with or without the use of a standard walker or single point cane. 8. Pt. will not present with pain in her lower extremities with weight bearing and ambulation. Prognosis: Good Physical Therapy Plan: PT 1-2x a day Saturday-Saturday for gait training, balance training, lower extremity strengthening, transfer training, and bed mobility.
--- NOTE | 2017-05-10 16:03 | Occupational Therapy Tx Note ---
Occupational Therapy Tx Note - Treatment Note Tolerated: Fair Total Time Spent With Patient: 30 Occupational Therapy Treatment Note: Detail (Pt. ambulated approx. 15 feet SBA using walker. Pt. stated pain in RLE (muscle soreness), so was brought in a w/c the rest of the way to the rehab gym. Pt. stood approx. 10 mins while sim. putting objects in/out of cupboards above head height with 1 lb. wrist weights, using occasional unilateral support on counter. BUE exercises usign 2 lb. free weights x10-15 reps. ea. shd flex/ext, shd abd/add, & biceps/triceps. P: cont. BUE PRE's & provide HEP to maximize safety and independence while performing I/ ADL's.) Occupational Therapy Problem List: Detail (1. Weakness BUE's 2. Decreased endurance for completing ADLs 3. Decreased safe functional mobility) Occupational Therapy Goals: 1. Pt to show increased endurance for ind. with ADLs. 2. Increase MMT BUE's to grossly 4/5. 3. Pt to be safe with functional mobility and ambulating household distances. Occupational Therapy Plan: OT to treat 2-4x a week M-F to address decreased endurance for ADLs, BUE weakness, and decreased safety during functional mobility.
[2017-05-11] MEDS: HYDROCODONE/APAP 5/325MG TABLET PO PRN ×3 (03:27→20:33)
[2017-05-11] MEDS: PANTOPRAZOLE SODIUM 40 MG TABLET PO SCH (06:20)
[2017-05-11] MEDS: CEPHALEXIN 500 MG CAPSULE PO SCH ×3 (09:40→21:29)
[2017-05-11] MEDS: ASPIRIN 81 MG TABEC PO SCH (09:40)
[2017-05-11] MEDS: LISINOPRIL 20 MG TABLET PO SCH (09:40)
[2017-05-11] MEDS: DULOXETINE HCL 30 MG CAPSULE.DR PO SCH (09:40)
[2017-05-11] MEDS: METOPROLOL TART 50 MG TABLET PO SCH ×2 (09:41→21:29)
[2017-05-11] MEDS: LORAZEPAM 0.5 MG TABLET PO PRN (21:28)
[2017-05-12] MEDS: HYDROCODONE/APAP 5/325MG TABLET PO PRN ×4 (05:33→23:16)
[2017-05-12] MEDS: PANTOPRAZOLE SODIUM 40 MG TABLET PO SCH ×2 (05:34→08:51)
[2017-05-12] MEDS: DULOXETINE HCL 30 MG CAPSULE.DR PO SCH (10:24)
[2017-05-12] MEDS: LISINOPRIL 20 MG TABLET PO SCH (10:25)
[2017-05-12] MEDS: METOPROLOL TART 50 MG TABLET PO SCH ×2 (10:25→21:50)
[2017-05-12] MEDS: ASPIRIN 81 MG TABEC PO SCH (10:25)
[2017-05-12] MEDS: CEPHALEXIN 500 MG CAPSULE PO SCH ×3 (10:26→21:55)
[2017-05-12] MEDS: LORAZEPAM 0.5 MG TABLET PO PRN (21:52)
[2017-05-13] MEDS: PANTOPRAZOLE SODIUM 40 MG TABLET PO SCH (06:14)
[2017-05-13] MEDS: HYDROCODONE/APAP 5/325MG TABLET PO PRN ×3 (06:14→20:32)
[2017-05-13] MEDS: LISINOPRIL 20 MG TABLET PO SCH (09:43)
[2017-05-13] MEDS: ASPIRIN 81 MG TABEC PO SCH (09:43)
[2017-05-13] MEDS: CEPHALEXIN 500 MG CAPSULE PO SCH ×3 (09:43→21:38)
[2017-05-13] MEDS: DULOXETINE HCL 30 MG CAPSULE.DR PO SCH (09:44)
[2017-05-13] MEDS: METOPROLOL TART 50 MG TABLET PO SCH (09:44)
[2017-05-13] MEDS ORDERED: FLU VAC QS 2017-18 (INPT, 6MO+) 60MCG/0.5ML IM ONE (09:53)
[2017-05-13] MEDS: ONDANSETRON 4 MG ODT TABLET SL PRN (12:36)
--- NOTE | 2017-05-13 17:03 | Occupational Therapy Tx Note ---
Occupational Therapy Tx Note - Treatment Note Tolerated: Good Total Time Spent With Patient: 40 Occupational Therapy Treatment Note: Detail (BUE red theraband 1x10 shd flex, horiz abd, abd, biceps, triceps, IR, & ER. Educ. provided in HEP, h/o & red theraband provided. 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 voiced concern for weakness and fear of falling while reaching for objects. Sim. reaching for objects in high and low cupboards while standing & floor items while seated. Educ. provided on body mechanics and positioning and positioning of walker for extra support prn. Pt. completed with unilateral support prn with no LOB. P: cont. BUE strengthening and endurance PRE's.) Occupational Therapy Problem List: Detail (1. Weakness BUE's 2. Decreased endurance for completing ADLs 3. Decreased safe functional mobility) Occupational Therapy Goals: 1. Pt to show increased endurance for ind. with ADLs. 2. Increase MMT BUE's to grossly 4/5. 3. Pt to be safe with functional mobility and ambulating household distances. Occupational Therapy Plan: OT to treat 2-4x a week M- to address decreased endurance for ADLs, BUE weakness, and decreased safety during functional mobility.
--- NOTE | 2017-05-13 18:33 | Physical Therapy Tx Note ---
Physical Therapy Tx Note - Treatment Note Tolerated: Good Total Time Spent With Patient: 30 Physical Therapy Tx Note: Detail (Pt asleep in bed upon arrival. Awoke easily, cooperative for therapy. Complained of R LE pain, that was worse over weekend. Independent w/bed mobility; sat at bedside to assess R knee, as she stated it felt like it was "going out of place". Mobilized patella medially, inferiorly and superiorly, STM to R IT band; pt performed 10 reps each of marching, LAQ, isometric hamstring curls. Independent w/getting dressed: pants, bra, hooded sweatshirt, socks. Sit to stand at front wheeled walker independently. Ambulated from bedside to stairwell door (65 feet) w/SBA, transported in wheelchair to therapy gym. Ambulated 10 feet to stairs in gym, instructed in proper technique for ascending/descending stairs; ascended and descended twice w /VCs and CGA. Ambulated 15 feet to OT table. Stand/sit transfer w/VCs. Left w /OT. Pt was bearing weight mostly on ball of foot during all ambulation.) Physical Therapy Problem List: Detail (1. Bilateral lower extremity muscle weakness 2. Lower extremity sensation impairements 3. Gait deviations 4. Balance deficits 5. Bilat lower extremity pain) Physical Therapy Goals: 1. PT will formally assess pt.'s balance with the Tinetti assessment tool. 2. PT will assess pt.'s bed mobility. 3. Pt. will be able to ascend/descend 6-7 stairs with supervision to get to the second floor of the house. 4. Pt. will be independent in all transfers. 5. Pt. will exhibit proper balance strategies during functional activites to allow safety in the home environment. 6. Pt. will exhibit improved strength by 1 MMT grade in all lower extremity musculature. 7. Pt. will demonstrate proper gait mechanics independently with or without the use of a standard walker or single point cane. 8. Pt. will not present with pain in her lower extremities with weight bearing and ambulation. Prognosis: Good Physical Therapy Plan: PT 1-2x a day Saturday-Saturday for gait training, balance training, lower extremity strengthening, transfer training, and bed mobility.
[2017-05-13] MEDS: LORAZEPAM 0.5 MG TABLET PO PRN (21:40)
[2017-05-14] MEDS: HYDROCODONE/APAP 5/325MG TABLET PO PRN ×3 (06:12→20:59)
[2017-05-14] MEDS: PANTOPRAZOLE SODIUM 40 MG TABLET PO SCH (06:13)
[2017-05-14] MEDS: DULOXETINE HCL 30 MG CAPSULE.DR PO SCH (09:20)
[2017-05-14] MEDS: CEPHALEXIN 500 MG CAPSULE PO SCH ×2 (09:20→17:09)
[2017-05-14] MEDS: ASPIRIN 81 MG TABEC PO SCH (09:20)
--- NOTE | 2017-05-14 09:29 | Occupational Therapy Tx Note ---
Occupational Therapy Tx Note - Treatment Note Tolerated: Other Occupational Therapy Treatment Note: Detail (Pt. declined OT services when attempted to tx at 9:15am. Pt. stated she wasn't feeling well and is waiting to recieve her pain pill. Pt. is leaving building for an appointment at 10am (when original therapy time was scheduled), and requested to do therapy after her appointment. P: will attempt to re-arrange schedule with other OT to see pt. at alternate time today.) Occupational Therapy Problem List: Detail (1. Weakness BUE's 2. Decreased endurance for completing ADLs 3. Decreased safe functional mobility) Occupational Therapy Goals: 1. Pt to show increased endurance for ind. with ADLs. 2. Increase MMT BUE's to grossly 4/5. 3. Pt to be safe with functional mobility and ambulating household distances. Occupational Therapy Plan: OT to treat 2-4x a week M-F to address decreased endurance for ADLs, BUE weakness, and decreased safety during functional mobility.
[2017-05-14] MEDS: LISINOPRIL 20 MG TABLET PO SCH (13:59)
--- NOTE | 2017-05-14 14:17 | Physical Therapy Tx Note ---
Physical Therapy Tx Note - Treatment Note Physical Therapy Tx Note: Detail (The patient refused PT secondary she was out for appointments. The patient stated she ambulated too much and had increased pain in R LE.) Physical Therapy Problem List: Detail (1. Bilateral lower extremity muscle weakness 2. Lower extremity sensation impairements 3. Gait deviations 4. Balance deficits 5. Bilat lower extremity pain) Physical Therapy Goals: 1. PT will formally assess pt.'s balance with the Tinetti assessment tool. 2. PT will assess pt.'s bed mobility. 3. Pt. will be able to ascend/descend 6-7 stairs with supervision to get to the second floor of the house. 4. Pt. will be independent in all transfers. 5. Pt. will exhibit proper balance strategies during functional activites to allow safety in the home environment. 6. Pt. will exhibit improved strength by 1 MMT grade in all lower extremity musculature. 7. Pt. will demonstrate proper gait mechanics independently with or without the use of a standard walker or single point cane. 8. Pt. will not present with pain in her lower extremities with weight bearing and ambulation. Physical Therapy Plan: PT 1-2x a day Saturday-Saturday for gait training, balance training, lower extremity strengthening, transfer training, and bed mobility.
[2017-05-15] MEDS: LORAZEPAM 0.5 MG TABLET PO PRN (00:21)
[2017-05-15] MEDS: PANTOPRAZOLE SODIUM 40 MG TABLET PO SCH ×2 (05:39→06:49)
[2017-05-15] MEDS: HYDROCODONE/APAP 5/325MG TABLET PO PRN ×3 (05:39→20:38)
[2017-05-15] MEDS: DULOXETINE HCL 30 MG CAPSULE.DR PO SCH (10:51)
[2017-05-15] MEDS: LISINOPRIL 20 MG TABLET PO SCH (10:51)
[2017-05-15] MEDS: ASPIRIN 81 MG TABEC PO SCH (10:51)
--- NOTE | 2017-05-15 11:20 | Occupational Therapy Tx Note ---
Occupational Therapy Tx Note - Treatment Note Tolerated: Fair (Tx session took place in pt's room per pt request d/t RLE soreness and not feeling well.) Total Time Spent With Patient: 30 Occupational Therapy Treatment Note: Detail (BUE PRE's 2 lb. free weights 1x15 ea.: supine punches, ABC's, SL IR/ER; seated: Shd flex, biceps, triceps, wrist flex, ext, sup, pro, radial & ulnar deviation. Pt. required mild SYCUAN assist and VC for proper exercise technique.) Occupational Therapy Problem List: Detail (1. Weakness BUE's 2. Decreased endurance for completing ADLs 3. Decreased safe functional mobility) Occupational Therapy Goals: 1. Pt to show increased endurance for ind. with ADLs. 2. Increase MMT BUE's to grossly 4/5. 3. Pt to be safe with functional mobility and ambulating household distances. Occupational Therapy Plan: OT to treat 2-4x a week M-F to address decreased endurance for ADLs, BUE weakness, and decreased safety during functional mobility.
[2017-05-15] MEDS: ONDANSETRON 4 MG ODT TABLET SL PRN (12:50)
[2017-05-15] MEDS ORDERED: ACETAMINOPHEN 500 MG TABLET PO PRN (13:20)
--- NOTE | 2017-05-15 14:28 | Physical Therapy Tx Note ---
Physical Therapy Tx Note - Treatment Note Tolerated: Good Total Time Spent With Patient: 40 Physical Therapy Tx Note: Detail (Patient states right low back, and lateral thigh sore today. Patient transferred supine to sit independently. Patient transferred sit to and from stand SBA x1. Patient ambulated 156 feet with wheeled walker SBA x1. Patient performed the following exercises x10 reps each : seated marching, LAQ, hamstring curls with red theraband, seated hip abduction with red theraband, isometric hip adduction, glut squeezes, and abdominal isometrics. Patient transferred sit to sidelying independently. MTT x15 minutes to right low back, quadratus lumborum, lumbar paraspinals, gluts, glut med, and TFL/IT band with patient sidelying. Patient transferred sidelying to supine independently. Patient tolerated treatment well. Patient reports low back and LE feels better after treatment. Patient was left reclined in bed with call light within reach.) Physical Therapy Problem List: Detail (1. Bilateral lower extremity muscle weakness 2. Lower extremity sensation impairements 3. Gait deviations 4. Balance deficits 5. Bilat lower extremity pain) Physical Therapy Goals: 1. PT will formally assess pt.'s balance with the Tinetti assessment tool. 2. PT will assess pt.'s bed mobility. 3. Pt. will be able to ascend/descend 6-7 stairs with supervision to get to the second floor of the house. 4. Pt. will be independent in all transfers. 5. Pt. will exhibit proper balance strategies during functional activites to allow safety in the home environment. 6. Pt. will exhibit improved strength by 1 MMT grade in all lower extremity musculature. 7. Pt. will demonstrate proper gait mechanics independently with or without the use of a standard walker or single point cane. 8. Pt. will not present with pain in her lower extremities with weight bearing and ambulation. Prognosis: Good Physical Therapy Plan: PT 1-2x a day Saturday-Saturday for gait training, balance training, lower extremity strengthening, transfer training, and bed mobility.
[2017-05-15] MEDS: METOPROLOL TART 50 MG TABLET PO SCH (21:09)
[2017-05-16] MEDS: HYDROCODONE/APAP 5/325MG TABLET PO PRN ×3 (02:21→17:52)
[2017-05-16] MEDS: LORAZEPAM 0.5 MG TABLET PO PRN ×2 (02:22→22:17)
[2017-05-16] MEDS: PANTOPRAZOLE SODIUM 40 MG TABLET PO SCH (06:23)
[2017-05-16 07:01] LABS: BASO % 0.4 % (0-6); GRAN % 55.3 % (47-80); HEMATOCRIT 40.1 % (35.0-47.0); HEMOGLOBIN 12.6 gm/dl (11.6-16.0); LYMPH % 30.7 % (16-45); MEAN CELL VOLUME 82.5 fl (81-97); MEAN CORPUSCULAR HEMOGLOBIN 25.9 pg (27-33); MEAN CORPUSCULAR HGB CONC 31.4 g/dl (32-36); MEAN PLATELET VOLUME 11.1 fl (7.4-10.4); MONO % 9.6 % (0-9); PLATELET COUNT 310 K/uL (130-400); RED BLOOD COUNT 4.86 M/uL (3.80-5.40); RED CELL DISTRIBUTION WIDTH 17.8 % (11.5-14.5)
--- NOTE | 2017-05-16 10:31 | Physical Therapy Tx Note ---
Physical Therapy Tx Note - Treatment Note Tolerated: Good Total Time Spent With Patient: 35 Physical Therapy Tx Note: Detail (Patient was reclined in bed when SUPERVISOR SANDBLASTER arrived. Patient states low back and right LE feeling better, took pain medication this morning. Patient transferred supine to sit independently. Patient transferred sit to and from stand SBA x1. Patient ambulated 364 feet with wheeled walker SBA x1. Patient performed the following exercises x10-15 reps each: seated marching, LAQ, standing heel raises, standing toe raises, standing hamstring curls, standing hip flexion, standing hip abduction, standing hip extension, squats, seated hip abduction with red theraband, seated isometric hip adduction, glut squeezes, and abdominal isometrics. Patient tolerated treatment well. Patient displays decreased strength and endurance with standing hip abduction, standing hip extension, standing hip flexion, standing hamstring curls, and squats. Patient reports feeling good after treatment. Patient was left reclined in chair after treatment.) Physical Therapy Problem List: Detail (1. Bilateral lower extremity muscle weakness 2. Lower extremity sensation impairements 3. Gait deviations 4. Balance deficits 5. Bilat lower extremity pain) Physical Therapy Goals: 1. PT will formally assess pt.'s balance with the Tinetti assessment tool. 2. PT will assess pt.'s bed mobility. 3. Pt. will be able to ascend/descend 6-7 stairs with supervision to get to the second floor of the house. 4. Pt. will be independent in all transfers. 5. Pt. will exhibit proper balance strategies during functional activites to allow safety in the home environment. 6. Pt. will exhibit improved strength by 1 MMT grade in all lower extremity musculature. 7. Pt. will demonstrate proper gait mechanics independently with or without the use of a standard walker or single point cane. 8. Pt. will not present with pain in her lower extremities with weight bearing and ambulation. Prognosis: Good Physical Therapy Plan: PT 1-2x a day Saturday-Saturday for gait training, balance training, lower extremity strengthening, transfer training, and bed mobility.
[2017-05-16] MEDS: DULOXETINE HCL 30 MG CAPSULE.DR PO SCH (11:13)
[2017-05-16] MEDS: LISINOPRIL 20 MG TABLET PO SCH (11:13)
[2017-05-16] MEDS: METOPROLOL TART 50 MG TABLET PO SCH ×2 (11:13→22:12)
[2017-05-16] MEDS: ASPIRIN 81 MG TABEC PO SCH (11:13)
--- NOTE | 2017-05-16 18:06 | Physical Therapy Tx Note ---
Physical Therapy Tx Note - Treatment Note Tolerated: Good Total Time Spent With Patient: 30 Physical Therapy Tx Note: Detail (Patient was reclined upon BUSINESS WRITER arrival. Patient transferred supine to sit independently. Patient transferred sit to and from stand SBA x1. Patient ambulated 364 feet with hand hold assist x1 for balance. Patient performed the following exercises x10 reps each: standing heel raises, standing toe raises, standing marching, standing hip abduction, standing hip extension, glut squeezes, and abdominal isometrics. Patient performed the following standing balance exercises x30 seconds each: feet together, feet together looking up and down, feet together looking side to side , feet together with pertubations, feet together with eyes closed, and tandem stance. Patient transferred sit to and from stand SBA x1. Patient ambulated 15 feet x2 with hand hold assist x1. Patient performed the following dynamic balance exercises x 30 feet each: marching, walking backwards, and sidestepping bilateral. Patient tolerated treatment well. Patient displays decreased balance with feet together looking up and down, feet together looking side to side, feet together with pertubations, feet together with eyes closed, tandem stance, and walking backwards. Patient reports fatigued after treatment. Patient was left seated on edge of bed with call light within reach.) Physical Therapy Problem List: Detail (1. Bilateral lower extremity muscle weakness 2. Lower extremity sensation impairements 3. Gait deviations 4. Balance deficits 5. Bilat lower extremity pain) Physical Therapy Goals: 1. PT will formally assess pt.'s balance with the Tinetti assessment tool. 2. PT will assess pt.'s bed mobility. 3. Pt. will be able to ascend/descend 6-7 stairs with supervision to get to the second floor of the house. 4. Pt. will be independent in all transfers. 5. Pt. will exhibit proper balance strategies during functional activites to allow safety in the home environment. 6. Pt. will exhibit improved strength by 1 MMT grade in all lower extremity musculature. 7. Pt. will demonstrate proper gait mechanics independently with or without the use of a standard walker or single point cane. 8. Pt. will not present with pain in her lower extremities with weight bearing and ambulation. Prognosis: Good Physical Therapy Plan: PT 1-2x a day Saturday-Saturday for gait training, balance training, lower extremity strengthening, transfer training, and bed mobility.
[2017-05-17] MEDS: HYDROCODONE/APAP 5/325MG TABLET PO PRN ×4 (02:58→22:59)
[2017-05-17] MEDS: PANTOPRAZOLE SODIUM 40 MG TABLET PO SCH (06:31)
[2017-05-17] MEDS: METOPROLOL TART 50 MG TABLET PO SCH ×2 (09:21→22:42)
[2017-05-17] MEDS: DULOXETINE HCL 30 MG CAPSULE.DR PO SCH (09:21)
[2017-05-17] MEDS: ASPIRIN 81 MG TABEC PO SCH (09:21)
[2017-05-17] MEDS: LISINOPRIL 20 MG TABLET PO SCH (09:21)
--- NOTE | 2017-05-17 11:00 | Physical Therapy Tx Note ---
Physical Therapy Tx Note - Treatment Note Tolerated: Good Total Time Spent With Patient: 30 Physical Therapy Tx Note: Detail (The patient was in bed when PT arrived. The patient complained of bilateral LE pain level 7 at the highest. Prior to ambulation gastroc and hamstring stretch were completed. The patient ambulated without device at a slow pace with CG of 1 a distance of 160 feet x 1. The patient completed LE exercises including seated adductor squeezes, resisted hip abduction , marching hamstring curls and quad sets all x 10 reps. The patient requested to sit at the edge of the bed. Call light was in place.) Physical Therapy Problem List: Detail (1. Bilateral lower extremity muscle weakness 2. Lower extremity sensation impairements 3. Gait deviations 4. Balance deficits 5. Bilat lower extremity pain) Physical Therapy Goals: 1. PT will formally assess pt.'s balance with the Tinetti assessment tool. 2. PT will assess pt.'s bed mobility. 3. Pt. will be able to ascend/descend 6-7 stairs with supervision to get to the second floor of the house. 4. Pt. will be independent in all transfers. 5. Pt. will exhibit proper balance strategies during functional activites to allow safety in the home environment. 6. Pt. will exhibit improved strength by 1 MMT grade in all lower extremity musculature. 7. Pt. will demonstrate proper gait mechanics independently with or without the use of a standard walker or single point cane. 8. Pt. will not present with pain in her lower extremities with weight bearing and ambulation. Physical Therapy Plan: PT 1-2x a day Saturday-Saturday for gait training, balance training, lower extremity strengthening, transfer training, and bed mobility.
--- NOTE | 2017-05-17 14:39 | Physical Therapy Tx Note ---
Physical Therapy Tx Note - Treatment Note Tolerated: Good Total Time Spent With Patient: 35 Physical Therapy Tx Note: Detail (Patient states right LE sore today. Patient transferred supine to sit independently. Patient transferred sit to and from stand SBA x1. Patient ambulated 78 feet with wheeled walker SBA x1. Patient ascended and descended 3 steps CGA x1 using stairwell rail and walker. Patient ambulated 229 feet with wheeled walker SBA x1. Patient performed the following exercises x10 reps each: seated marching, LAQ, hamstring curls with red theraband, seated hip abduction with red theraband, abdominal isometrics, glut squeezes, standing heel raises, standing toe raises, rowing with red theraband, shoulder extension with red theraband, shoulder external rotation with red theraband, shoulder horizontal abduction with red theraband, bicep curls with red theraband, and tricep extension with red theraband. Patient tolerated treatment well. Patient reports fatigued after treatment. Patient was left seated on edge of bed with call light within reach.) Physical Therapy Problem List: Detail (1. Bilateral lower extremity muscle weakness 2. Lower extremity sensation impairements 3. Gait deviations 4. Balance deficits 5. Bilat lower extremity pain) Physical Therapy Goals: 1. PT will formally assess pt.'s balance with the Tinetti assessment tool. 2. PT will assess pt.'s bed mobility. 3. Pt. will be able to ascend/descend 6-7 stairs with supervision to get to the second floor of the house. 4. Pt. will be independent in all transfers. 5. Pt. will exhibit proper balance strategies during functional activites to allow safety in the home environment. 6. Pt. will exhibit improved strength by 1 MMT grade in all lower extremity musculature. 7. Pt. will demonstrate proper gait mechanics independently with or without the use of a standard walker or single point cane. 8. Pt. will not present with pain in her lower extremities with weight bearing and ambulation. Prognosis: Good Physical Therapy Plan: PT 1-2x a day Saturday-Saturday for gait training, balance training, lower extremity strengthening, transfer training, and bed mobility.
[2017-05-17] MEDS: LORAZEPAM 0.5 MG TABLET PO PRN (22:25)
[2017-05-18] MEDS: PANTOPRAZOLE SODIUM 40 MG TABLET PO SCH (06:13)
[2017-05-18] MEDS: HYDROCODONE/APAP 5/325MG TABLET PO PRN ×3 (06:14→21:02)
[2017-05-18] MEDS: DULOXETINE HCL 30 MG CAPSULE.DR PO SCH (09:47)
[2017-05-18] MEDS: ASPIRIN 81 MG TABEC PO SCH (09:48)
[2017-05-18] MEDS: METOPROLOL TART 50 MG TABLET PO SCH ×2 (09:48→21:59)
[2017-05-18] MEDS: LISINOPRIL 20 MG TABLET PO SCH (09:51)
[2017-05-18] MEDS: LORAZEPAM 0.5 MG TABLET PO PRN (21:02)
[2017-05-19] MEDS: HYDROCODONE/APAP 5/325MG TABLET PO PRN ×3 (03:06→19:18)
[2017-05-19] MEDS: PANTOPRAZOLE SODIUM 40 MG TABLET PO SCH (06:11)
[2017-05-19] MEDS: METOPROLOL TART 50 MG TABLET PO SCH ×2 (09:37→22:56)
[2017-05-19] MEDS: LISINOPRIL 20 MG TABLET PO SCH (09:37)
[2017-05-19] MEDS: ASPIRIN 81 MG TABEC PO SCH (09:37)
[2017-05-19] MEDS: DULOXETINE HCL 30 MG CAPSULE.DR PO SCH (09:37)
[2017-05-19] MEDS ORDERED: NOVOLOG FLEXPEN (INSULIN ASPART) 100 UNITS/ML SQ SCH (17:20)
[2017-05-19] MEDS: LORAZEPAM 0.5 MG TABLET PO PRN (23:31)
[2017-05-20] MEDS: HYDROCODONE/APAP 5/325MG TABLET PO PRN ×3 (04:09→17:54)
[2017-05-20] MEDS: PANTOPRAZOLE SODIUM 40 MG TABLET PO SCH (06:12)
[2017-05-20] MEDS: DULOXETINE HCL 30 MG CAPSULE.DR PO SCH (09:29)
[2017-05-20] MEDS: ASPIRIN 81 MG TABEC PO SCH (09:30)
[2017-05-20] MEDS: LISINOPRIL 20 MG TABLET PO SCH (10:23)
[2017-05-20] MEDS: METOPROLOL TART 50 MG TABLET PO SCH ×2 (10:23→21:31)
--- NOTE | 2017-05-20 12:01 | Physical Therapy Tx Note ---
Physical Therapy Tx Note - Treatment Note Tolerated: Good Total Time Spent With Patient: 30 Physical Therapy Tx Note: Detail (The patient was in bed when PT arrived. The patient was independent with dressing. The patient ambulated 150 feet x 1 without device with supervision for safety only. The patient ambulated on 3 steps, then 7 steps with use of one railing with supervision for safety only using one step at a time method. The patient's balance was retested using the Tinetti Assessment Tool which was 24/ ( low risk for falling category). The patient completed LE strengthening exercises in seated: with red band hip abduction, hip marching, hamstring curls x 15 reps, hip adductor squeezes, LAQ x 15 reps. The patient has improved balance.) Physical Therapy Problem List: Detail (1. Bilateral lower extremity muscle weakness 2. Lower extremity sensation impairements 3. Gait deviations 4. Balance deficits 5. Bilat lower extremity pain) Physical Therapy Goals: 1. PT will formally assess pt.'s balance with the Tinetti assessment tool. 2. PT will assess pt.'s bed mobility. 3. Pt. will be able to ascend/descend 6-7 stairs with supervision to get to the second floor of the house. 4. Pt. will be independent in all transfers. 5. Pt. will exhibit proper balance strategies during functional activites to allow safety in the home environment. 6. Pt. will exhibit improved strength by 1 MMT grade in all lower extremity musculature. 7. Pt. will demonstrate proper gait mechanics independently with or without the use of a standard walker or single point cane. 8. Pt. will not present with pain in her lower extremities with weight bearing and ambulation. Physical Therapy Plan: PT 1-2x a day Saturday-Saturday for gait training, balance training, lower extremity strengthening, transfer training, and bed mobility.
--- NOTE | 2017-05-20 17:12 | Occupational Therapy Tx Note ---
Occupational Therapy Tx Note - Treatment Note Tolerated: Good Total Time Spent With Patient: 35 Occupational Therapy Treatment Note: Detail (BUE exercises using 2lb. free weights 3l24-33 ea. of: biceps, triceps, shd add/abd, flex/ext, and horizontal abd. Please see d/c summary for re-evaluation details and recommendations.) Occupational Therapy Problem List: Detail (1. Weakness BUE's 2. Decreased endurance for completing ADLs 3. Decreased safe functional mobility) Occupational Therapy Goals: 1. Pt to show increased endurance for ind. with ADLs. 2. Increase MMT BUE's to grossly 4/5. 3. Pt to be safe with functional mobility and ambulating household distances. Occupational Therapy Plan: OT to treat 2-4x a week M- to address decreased endurance for ADLs, BUE weakness, and decreased safety during functional mobility.
--- NOTE | 2017-05-20 17:23 | Rehab Discharge Summary ---
Patient Information - Patient Information Diagnosis: Deconditioning d/t weakness & UTI Ordered Treatment: OT Evaluate and Treat Surgery: No History: Detail (Pt admitted from [facility] on 05/04/17 after admittance for UTI and deconditioning.) Past Medical/Surgical Hx: PAST MEDICAL/SURGICAL HISTORY Past Surgical History Hysterectomy, Cholecystectomy, Colonoscopy PMH - Respiratory Hx Respiratory Disorders Yes Hx Pneumonia Yes: 2011 or 2012 PMH - Cardiovascular Hx Cardiovascular Disorders Yes Hx Congestive Heart Failure Yes Hx Hypertension Yes PMH - Neuro Hx Neurological Disorders No Hx Seizures No PMH - GI Hx Gastrointestinal Disorders Yes Hx Abdominal Pain Yes: lower mid radiates RLQ Hx Gastroesophageal Reflux Yes Hx Irritable Bowel Yes Hx Pancreatitis Yes: multiple time 2014 PMH - Hx Genitourinary Disorders No Hx Kidney Stones No PMH - Endocrine Hx Endocrine Disorders No Hx Diabetes No Hx Thyroid Disease No PMH - Musculoskeletal Hx Musculoskeletal Disorders Yes Hx Arthritis Yes Hx Osteoporosis Yes PMH - Psych Hx Psychiatric Problems Yes Hx Anxiety Yes Hx Depression Yes PMH - Hematology/Oncology Hx Hematology/Oncology Yes Disorders Hx Anemia Yes: currently Premorbid Status: Detail (Pt was ind. with all ADLs and IADLs R[employer] LEAD. Pt prefers to take baths when at home. She ambulated without device and has no ADL or DME equipment at home.) Social History: Detail (Pt lives alone but will be staying with her son until fully recovered once d/c'd from [facility]. Her son lives in a Bi-level home w/ 1 step to enter and 1-sided railing. Once inside there are 4 steps to go down to basement level and 5-6 steps to upper level. Son will be able to provide assistance for meals. Son's home consists of 1 1/2 baths with one being a walk in shower w/ curtain enclosure and the other a tub/shower combo with curtain enclosure. No grab bars in shower or around toilet. Standard toilet.) Precautions: [place], Fall - Time With Patient Total Time Spent With Patient (Min): 35 (re-eval and tx completed 05/20/17) Treatment Procedures: Detail (Pt. educ. provided (discussed and reviewed per pt' s concerns): options for bathroom equipment during showering for increased safety and decreased standing endurance, BUE HEP, techniques for carrying items while using walker (i.e. tray or bag attachment), body positioning using walker while retrieving items in cupboards (high and low).) Subjective Information - Subjective Information Per Patient (Pt. voiced concern for ability to perform all I/ADL's at home d/t low endurance. Pt. stated she does not like to use walker for mobility because she feels it takes more effort than to ambulate without it.) Objective Data - Pain Pain Present: Yes (RLE) - Mental Status Patient Orientation: Oriented x3 - Visual Perception Appears within normal limits for therapeutic activities - ROM Within normal limits - Strength/Tone Not within normal limits (MMT BUE flex 3+/5, all other 4/5 (shd ext, abd, IR, ER , biceps, triceps, wrist ext, flex, supination, pronation).) - Coordination Appears within normal limits for therapeutic activities - Bed Mobility Independent - Transfers Independent - Balance Balance Sitting: Good Balance Standing: Fair - Sensation Intact - ADL's/IADL's Detail (Pt. demo. ability to dress independently, include UB & LB (seated EOB), safely without use of AE. Pt. requires extra time and occasional rest breaks d/ t decrease endurance and BUE strength. Pt. demo. functional ambulation at least 100 feet using 2ww.) Therapy Assessment - Therapy Assessment Detail (Pt. would benefit from an OT home evaluation to maximize safety and independence with I/ADL's, assess potential DME/AE needs, and assist the transition to her home environment. Pt. would benefit from continuing BUE exercises at home (HEP has been provided and reviewed).) Patient Education - Patient Education Teaching Topic: Equipment Use, Exercise/Activity Response: Return Demonstration, Verbalize Understanding Teaching Method: Discussion, Demonstration, Handout Teaching Recipient: Patient Barriers To Learning: None Problem List - Problem List Physical Therapy Problem List: Detail (1. Bilateral lower extremity muscle weakness 2. Lower extremity sensation impairements 3. Gait deviations 4. Balance deficits 5. Bilat lower extremity pain) Occupational Therapy Problem List: Detail (1. Weakness BUE's 2. Decreased endurance for completing ADLs 3. Decreased safe functional mobility) Goals - Goals Physical Therapy Goals: 1. PT will formally assess pt.'s balance with the Tinetti assessment tool. 2. PT will assess pt.'s bed mobility. 3. Pt. will be able to ascend/descend 6-7 stairs with supervision to get to the second floor of the house. 4. Pt. will be independent in all transfers. 5. Pt. will exhibit proper balance strategies during functional activites to allow safety in the home environment. 6. Pt. will exhibit improved strength by 1 MMT grade in all lower extremity musculature. 7. Pt. will demonstrate proper gait mechanics independently with or without the use of a standard walker or single point cane. 8. Pt. will not present with pain in her lower extremities with weight bearing and ambulation. Occupational Therapy Goals: 1. Pt to show increased endurance for ind. with ADLs. (partially met; pt. will cont. to increase endurance via completing home routines. Pt. has assistance at home if needed for the first couple weeks). 2. Increase MMT BUE's to grossly 4/5. (Almost met; shd flex 3+/5, all other 4/5. HEP provided). 3. Pt to be safe with functional mobility and ambulating household distances. (Met). Prognosis - Prognosis Good Plan - Plan Physical Therapy Plan: PT 1-2x a day Saturday-Saturday for gait training, balance training, lower extremity strengthening, transfer training, and bed mobility. Occupational Therapy Plan: D/c from OT services at this time.
[2017-05-21] MEDS: HYDROCODONE/APAP 5/325MG TABLET PO PRN ×3 (00:50→13:19)
[2017-05-21] MEDS: LORAZEPAM 0.5 MG TABLET PO PRN (00:50)
[2017-05-21] MEDS: PANTOPRAZOLE SODIUM 40 MG TABLET PO SCH (06:25)
--- NOTE | 2017-05-21 08:34 | Discharge Summary ---
Providers Discharge Summary Date: 05/21/17 Date of admission: 05/04/17 15:43 Expected Date of Discharge: 05/21/17 Attending physician: Paulo Ji Primary care physician: NANCY BAR M.D. Physical Exam - Vital Signs Vital Signs: Vital Signs - Last 24 Hrs Temp Pulse Resp BP BP BP Pulse Ox 05/21/17 08:00 98.3 F 63 16 94/53 97 05/20/17 20:00 98.2 F 92 H 18 105/62 98 05/20/17 09:53 99.4 F 102/67 - General General Appearance: Alert, Oriented x3, Cooperative, No acute distress - Head Head exam: Normal inspection - Eye Eye exam: Normal appearance, PERRL - ENT ENT exam: Normal exam, Mucous membranes moist, Normal external ear exam, Normal orophraynx, TM's normal bilaterally - Neck Neck exam: Normal inspection, Full ROM. negative: Tenderness - Respiratory Respiratory exam: Normal lung sounds bilaterally. negative: Respiratory distress - Cardiovascular Cardiovascular Exam: Regular rate, Normal rhythm, Normal heart sounds - GI/Abdominal GI/Abdominal exam: Soft, Normal bowel sounds. negative: Tenderness - Extremities Extremities exam: Normal inspection, Full ROM, Normal capillary refill. negative: Tenderness - Back Back exam: Reports: Normal inspection, Full ROM. Denies: CVA tenderness (R), CVA tenderness (L), Muscle spasm, Rash noted, Tenderness - Neurological Neurological exam: Alert, Normal gait, Oriented X3, Reflexes normal - Psychiatric Psychiatric exam: Normal affect, Normal mood - Skin Skin exam: Dry, Intact, Normal color, Warm Hospitalization - Hospitalization Admission Diagnosis: Deconditioning due to weakness and urinary tract infection - Problem List (1) Physical deconditioning Current Visit: Yes Status: Acute Base Code: R53.81 - OTHER MALAISE Comment : 05/05/17- deconditioned 2/2 recent hospitalization and UTI. -PT/OT M-F to improve strength and physical functioning (2) Chronic back pain Current Visit: No Status: Acute Base Code: M54.9 - DORSALGIA, UNSPECIFIED; G89.29 - OTHER CHRONIC PAIN - Disposition follow up with Dr. Bar in one week - Hospitalization Course Disposition: Home, Self-Care Reason For Discharge/Transfer: Medical Stability Hospital Course: patient gradually improved over the rehab time and is doing much better and is ambulatory. Her BP meds were decreased lisinopril to 10 mg per day and her lopressor decreased to 25 mg BID and they may need to be adjusted down from this too Abnormal Labs: Abnormal Lab Results 05/06/17 05/16/17 Range/Units 08:54 06:19 MCV 79.6 L (81-97) fl MCH 26.2 L 25.9 L (27-33) pg MCHC 31.4 L (32-36) g/dl RDW 17.5 H 17.8 H (11.5-14.5) % MPV 11.6 H 11.1 H (7.4-10.4) fl Monocytes % 9.6 H (0-9) % Condition at Discharge: (1) Good Discharge Diagnosis: decondition resolved. UTI resolved. hypertension. History of CHF. chronic back pain. GERD. anxiety Discharge Medications - Discharge Medications Prescriptions: Lorazepam [Ativan] 1 mg PO QHS PRN #30 PRN Reason: Anxiety Duloxetine HCl [Cymbalta] 60 mg PO DAILY #30 Hydrocodone/Acetaminophen [Hydrocodone/Acetaminophen 5mg/325mg] 0.5 - 1 tab PO Q6H PRN #30 PRN Reason: Pain - General Lisinopril [Prinivil] 10 mg PO DAILY #30 tab Metoprolol Tartrate [Lopressor] 25 mg PO BID #60 tab Ondansetron [Zofran Odt] 4 mg SL Q8H PRN #20 PRN Reason: Nausea/Vomiting Home Medications: Ambulatory Orders Lorazepam 1 mg PO QHS 01/02/14 [Last Taken 04/14/17] Esomeprazole Magnesium [Nexium] 40 mg PO DAILY 11/07/14 [Last Taken 04/14/17] Ondansetron [Zofran Odt] 4 mg PO Q8H #15 tab.rapdis 10/12/16 [Last Taken 07:38 4] Aspirin [Ecotrin] 81 mg PO DAILY 05/04/17 [Last Taken 05/04/17 81] Duloxetine HCl [Cymbalta] 60 mg PO DAILY 05/04/17 [Last Taken 05/04/17 60] Acetaminophen [Tylenol 500Mg Tab] 500 mg PO Q6H PRN 05/21/17 [Last Taken Unknown ] Aspirin Enteric-Coated [Ecotrin (EC)] 81 mg PO DAILY 05/21/17 [Last Taken Unknown] Duloxetine HCl [Cymbalta] 60 mg PO DAILY #30 05/21/17 [Last Taken Unknown] Hydrocodone/Acetaminophen [Hydrocodone/Acetaminophen 5mg/325mg] 0.5 - 1 tab PO Q6H PRN #30 05/21/17 [Last Taken Unknown] Lisinopril [Prinivil] 10 mg PO DAILY #30 tab 05/21/17 [Last Taken Unknown] Lorazepam [Ativan] 1 mg PO QHS PRN #30 05/21/17 [Last Taken Unknown] Metoprolol Tartrate [Lopressor] 25 mg PO BID #60 tab 05/21/17 [Last Taken Unknown] Ondansetron [Zofran Odt] 4 mg SL Q8H PRN #20 05/21/17 [Last Taken Unknown] Discharge Plan - Discharge Instructions Activity at Discharge: Increase Activity as Tolerated Diet at Discharge: Low Salt Diet Additional Instructions: follow up with Dr Bar in one week decrease lisinopril to 10 mg per day decrease metoprolol tartrate to 25 mg twice a day
[2017-05-21] MEDS ORDERED: METOPROLOL TART 25 MG TABLET PO SCH (10:00)
[2017-05-21] MEDS ORDERED: LISINOPRIL 10 MG TABLET PO SCH (10:00)
[2017-05-21] MEDS: DULOXETINE HCL 30 MG CAPSULE.DR PO SCH (10:07)
[2017-05-21] MEDS: ASPIRIN 81 MG TABEC PO SCH (10:09)
--- NOTE | 2017-05-21 15:13 | Rehab Discharge Summary ---
Patient Information - Patient Information Diagnosis: Deconditioning d/t weakness & UTI Ordered Treatment: PT Evaluate and Treat Surgery: No History: Detail (Pt admitted from [facility] on 05/04/17 after admittance for UTI and deconditioning.) Past Medical/Surgical Hx: PAST MEDICAL/SURGICAL HISTORY Past Surgical History Hysterectomy, Cholecystectomy, Colonoscopy PMH - Respiratory Hx Respiratory Disorders Yes Hx Pneumonia Yes: 2011 or 2012 PMH - Cardiovascular Hx Cardiovascular Disorders Yes Hx Congestive Heart Failure Yes Hx Hypertension Yes PMH - Neuro Hx Neurological Disorders No Hx Seizures No PMH - GI Hx Gastrointestinal Disorders Yes Hx Abdominal Pain Yes: lower mid radiates RLQ Hx Gastroesophageal Reflux Yes Hx Irritable Bowel Yes Hx Pancreatitis Yes: multiple time 2014 PMH - Hx Genitourinary Disorders No Hx Kidney Stones No PMH - Endocrine Hx Endocrine Disorders No Hx Diabetes No Hx Thyroid Disease No PMH - Musculoskeletal Hx Musculoskeletal Disorders Yes Hx Arthritis Yes Hx Osteoporosis Yes PMH - Psych Hx Psychiatric Problems Yes Hx Anxiety Yes Hx Depression Yes PMH - Hematology/Oncology Hx Hematology/Oncology Yes Disorders Hx Anemia Yes: currently Premorbid Status: Detail (Pt was ind. with all ADLs and IADLs [employer] ANALYST. Pt prefers to take baths when at home. She ambulated without device and has no ADL or DME equipment at home.) Social History: Detail (Pt lives alone but will be staying with her son until fully recovered once d/c'd from [facility]. Her son lives in a Bi-level home w/ 1 step to enter and 1-sided railing. Once inside there are 4 steps to go down to basement level and 5-6 steps to upper level. Son will be able to provide assistance for meals. Son's home consists of 1 1/2 baths with one being a walk in shower w/ curtain enclosure and the other a tub/shower combo with curtain enclosure. No grab bars in shower or around toilet. Standard toilet.) Precautions: [place], Fall - Time With Patient Total Time Spent With Patient (Min): 10 Treatment Procedures: Detail (Patient's wheeled walker was fitted to patient.) Subjective Information - Subjective Information Per Patient (The patient's complaints of R LE and lower back are variable.) Objective Data - Mental Status Patient Orientation: Oriented x3 - Visual Perception Appears within normal limits for therapeutic activities - ROM Within normal limits (The patient's LE AROM is WNL.) - Strength/Tone Not within normal limits (The patient's LE stength was as follows: R hip flexors 3+/5, L 4-/5, bilateral hip abductors and adductors 4-/5, R knee extensors 3+/5, L 4/5, bilateral knee flexors 4/5, bilateral ankle musculature 4+/5.) - Bed Mobility Independent (The patient was independent with supine to and from sit and scooting up in bed.) - Transfers Independent (Independent sit to and from stand transfer and toilet transfers.) - Balance Balance Sitting: Good Balance Standing: Good (The patient's balance using the Tinetti Balance Assessment Tool was which is in the low risk for fall category.) - Gait Detail (The patient ambulates without device a distance of 130 feet with supervision for safety . The patient ambulates without device with decreased speed and stride length and decreased R LE weight bearing when R LE pain is present. The patient ambulated independently with wheeled walker a distance of 130 feet plus with improved overall gait pattern. When the patient was encouraged to ambulate with walker especially when in pain. The patient ambulated on a flight 3 steps and a flight of 7 steps with use of one railing with supervision for safety.) Therapy Assessment - Therapy Assessment Detail (The patient had improved gait , balance and LE strength. Home PT and OT is recommended for assessment of the patient's safety with mobility in a home environment.) Patient Education - Patient Education Teaching Topic: Exercise/Activity (The patient is independent with a HEP of LE strengthening exercises.) Response: Return Demonstration Teaching Method: Handout Teaching Recipient: Patient Barriers To Learning: Age Related Problem List - Problem List Physical Therapy Problem List: Detail (1. Bilateral lower extremity muscle weakness 2. Lower extremity sensation impairements 3. Gait deviations 4. Balance deficits 5. Bilat lower extremity pain) Occupational Therapy Problem List: Detail (1. Weakness BUE's 2. Decreased endurance for completing ADLs 3. Decreased safe functional mobility) Goals - Goals Physical Therapy Goals: GOALS MET: 1. PT will formally assess pt.'s balance with the Tinetti assessment tool. 2. PT will assess pt.'s bed mobility. 3. Pt. will be able to ascend/descend 6-7 stairs with supervision to get to the second floor of the house. 4. Pt. will be independent in all transfers. 5. Pt. will exhibit proper balance strategies during functional activites to allow safety in the home environment. 6. Pt. will exhibit improved strength by 1 MMT grade in all lower extremity musculature. 7. Pt. will demonstrate proper gait mechanics independently with or without the use of a standard walker or single point cane. GOAL PARTIALLY MET: 8. Pt. will not present with pain in her lower extremities with weight bearing and ambulation. Occupational Therapy Goals: 1. Pt to show increased endurance for ind. with ADLs. (partially met; pt. will cont. to increase endurance via completing home routines. Pt. has assistance at home if needed for the first couple weeks). 2. Increase MMT BUE's to grossly 4/5. (Almost met; shd flex 3+/5, all other 4/5. HEP provided). 3. Pt to be safe with functional mobility and ambulating household distances. (Met). Plan - Plan Physical Therapy Plan: The patient is discharged to home this afternoon. The patient is to receive Home PT/OT. Occupational Therapy Plan: OT to treat 2-4x a week M- to address decreased endurance for ADLs, BUE weakness, and decreased safety during functional mobility.
== END 2017-05-21 16:25 | disposition home or self-care (01) | DRG 948 ==
LOC: MEDSURG 15:43
PROVIDERS: ADMIT Emergency Medicine; ATTEND Emergency Medicine
DX: R53.1 Weakness (principal); I10 Essential (primary) hypertension; I50.9 Heart failure, unspecified; D64.89 Other specified anemias; K58.9 Irritable bowel syndrome, unspecified; M17.10 Unilateral primary osteoarthritis, unspecified knee; I95.2 Hypotension due to drugs; T50.2X5A Adverse effect of carbonic-anhydrase inhibitors, benzothiadiazides and other diuretics, initial encounter
CPT/HCPCS: 80048; 83735; 85025; 90686; 97110; 97140; 97165; 97530; 97535; 99306; 99308